=== PATIENT | female | born 1940 | race Caucasian/White ===

== ENCOUNTER 2024-01-16 09:34 | Emergency (ER) | payer MEDICARE, SELFPAY ==
[2024-01-16 09:38] VITALS: BP 137/85
--- NOTE | 2024-01-16 10:16 | ED.GENMED ---
History of Present Illness
<Heather Gomes PA-C - Last Filed: 01/17/24 17:42>
General
Chief Complaint: Skin Problem
Source: patient
Exam Limitations: none
Time Seen by Provider: 01/16/24 09:43
Nursing documentation reviewed up to this point in time: agreed with
History of Present Illness
History of Present Illness:
Patient is an 83-year-old female presenting to the emergency department via EMS from [facility] for evaluation of leg laceration. Patient states that laceration occurred last night when she was being transferred from her bed to the
wheelchair to get to the bathroom. They applied a pressure dressing but bleeding persisted throughout the night. She was sent to the emergency department for evaluation of laceration. No other injuries.
Patient denies any numbness/tingling in right lower leg. She does suffer from chronic cellulitis of right lower leg and swelling is chronic per patient's daughter.
Patient has not received a tetanus shot in the last 10 years.
Past History
<Heather Gomes PA-C - Last Filed: 01/17/24 17:42>
Past History
ED Past Medical History: CVA (with residual R sided weakness), GERD, Hypercholesterolemia, Psychiatric (depression) and Other (urinary incontinence, cataracts, arthritis, dvt, cellulitis)
ED Past Surgical History: Other (multiple D&Cs tubal ligation age 31 KRYSTLE age 45 L carotid surgery (99% block) 1995)
Social History
Tobacco: Former smoker
Alcohol: None
Drug: None
Personal: Single
Living: alone ([facility])
Employment: Retired
Family History
Family History: Other (Noncontributory)
Review of Systems
<Heather Gomes PA-C - Last Filed: 01/17/24 17:42>
Review of Systems
Allergies reviewed?: Yes
All Other Systems: ROS reviewed and negative except as documented in HPI and ROS
Phy Exam
<Heather Gomes PA-C - Last Filed: 01/17/24 17:42>
Physical Exam
Physical Exam:
Vitals: Patient's vital signs are stable
General: Patient is well appearing, no acute distress
Skin: Approximately 4 cm superficial laceration somewhat jagged to right anterior lower leg.
Head: Normocephalic, atraumatic
Eyes: Sclera nonicteric. EOMs intact. No nystagmus.
Throat: Protecting airway
Neck: Normal ROM, no cervical spine tenderness, no meningismus
Cardiac: Regular rate and rhythm, no murmurs.
Pulm: Normal respiratory effort, no wheezes, rales, rhonchi heard on exam.
Abdomen: No abdominal tenderness.
Extremities: 4 cm superficial laceration of right anterior lower leg with mild nonpulsatile bleeding. Mild surrounding erythema of right lower leg without any significant warmth, or red streaking. Pitting edema of right lower extremity (chronic).
Great distal pulses of right lower extremity. Sensation fully intact.
Neuro: AAOx3. Grossly intact.
Psychiatric: Normal affect.
Course
<Heather Gomes PA-C - Last Filed: 01/17/24 17:42>
Orders/Labs/Results
Orders:
Orders
01/16/24 10:15
Acetaminophen [Tylenol] 650 mg PO NOW STA
01/16/24 10:21
Tetanus/Diphth/Acelpertussis [Adacel] 0.5 ml IM .ONCE ONE
01/16/24 11:03
Cephalexin Monohydrate [Keflex] 250 mg PO NOW STA
Vital Signs
Initial and Last Documented VS:
Initial Vital Signs
Temp Pulse Resp BP Pulse Ox
97.5 F 76 18 137/85 95
01/16/24 09:38 01/16/24 09:38 01/16/24 09:38 01/16/24 09:38 01/16/24 09:38
Last Documented Vital Signs
Temp Pulse Resp BP Pulse Ox
97.5 F 76 18 137/85 95
01/16/24 09:38 01/16/24 09:38 01/16/24 09:38 01/16/24 09:38 01/16/24 09:38
<Butch Reynoso MD - Last Filed: 01/16/24 12:10>
Orders/Labs/Results
Orders:
Orders
01/16/24 10:15
Acetaminophen [Tylenol] 650 mg PO NOW STA
01/16/24 10:21
Tetanus/Diphth/Acelpertussis [Adacel] 0.5 ml IM .ONCE ONE
01/16/24 11:03
Cephalexin Monohydrate [Keflex] 250 mg PO NOW STA
Vital Signs
Initial and Last Documented VS:
Initial Vital Signs
Temp Pulse Resp BP Pulse Ox
97.5 F 76 18 137/85 95
01/16/24 09:38 01/16/24 09:38 01/16/24 09:38 01/16/24 09:38 01/16/24 09:38
Last Documented Vital Signs
Temp Pulse Resp BP Pulse Ox
97.5 F 76 18 137/85 95
01/16/24 09:38 01/16/24 09:38 01/16/24 09:38 01/16/24 09:38 01/16/24 09:38
Procedures
<Heather Gomes PA-C - Last Filed: 01/17/24 17:42>
Laceration Closure
Right Lower Anterior Leg:
Status of Wound: clean
Size of Wound in cm: 4
Description of Wound Edges: ragged
Preparation: cleaned with saline and cleaned with SurClens
Anesthesia: 1% Lidocaine with epi
Revision/Debridement: routine- no revision
Wound exploration: explored to base- no FB
Type of Closure: interrupted sutures
Skin Closure Material: 4-0 nylon
Number of sutures: 7
Additional information:
Well-approximated with 7 simple opted sutures. Steri-Strips placed in between sutures for better approximation.
<Heather Gomes PA-C - Last Filed: 01/17/24 17:42>
MDM/Problems Addressed
Differential Diagnosis Includes:
Not limited to: Laceration, contusion
MDM/Problems Addressed:
83-year-old female presenting for evaluation of right lower leg laceration obtained during transfer last night at senior living. Did not sustain any other injuries. No head strike. Unknown last tetanus shot. Vital signs stable. Exam as above.
There is approximately 4 cm somewhat superficial and jagged laceration on the right anterior lower leg. There is some mild surrounding erythema and edema but per patient and her daughter she suffers with chronic cellulitis of this leg. There is
great distal pulses in right lower extremity.
Wound was irrigated thoroughly. Laceration closed with 7 simple interrupted sutures and Steri-Strips. Skin is well-approximated and bleeding under well control. Dressing placed. Patient tolerated procedure well. Given mild surrounding erythema
and questionable worsening appearance of chronic cellulitis�will place patient on short course of Keflex to prevent acute infection. First dose given in emergency department today. Tetanus shot was updated. Wound care instructions and return
precautions discussed at length with patient and patient's daughter. Patient will follow-up with PCP. Patient will be transported back to [facility].
Chronic conditions affecting care:
Chronic cellulitis
Acute Exacerbation and/or Progression of Chronic Illness:
N/A
<Heather Gomes PA-C - Last Filed: 01/17/24 17:42>
*Pulse Oximetry
Patient hypoxic: no
*EKG
Interpreted by ED Provider?: NA
*Slot Ambassador Interpretation
Rate: Slot Ambassador- N/A
*Critical Care Note
Total Time (30-74mins, 75-104mins- exclusive of procedures): Not Applicable
ED Attending Note
<Heather Gomes PA-C - Last Filed: 01/17/24 17:42>
-
Portions of this chart may have been created with voice recognition software.� Occasional wrong word or��sound alike� substitutions may have occurred due to the inherent limitations of voice recognition software.
<Butch Reynoso MD - Last Filed: 01/16/24 12:10>
ED Attending Note
Patient seen and examined by attending physician: Yes
ED Attending Note:
Patient presents to ED from senior living secondary to persistent bleeding from right lower leg, which occurred last night when she was being transported from her wheelchair. Patient unsure of her last tetanus vaccination. Denies any other
injuries. Denies loss of sensation or weakness. Pt takes 81mg aspirin daily
Physical Exam
General: no apparent distress, not acutely ill. afebrile
Head: nc/at. eomi
Neck: supple. normal range of motion
Neuro: alert and oriented. no focal neurological deficits
Skin: an approx 4cm superficial laceration over right lower anterior leg, with minimal oozing of nonpulsatile bleeding.
Psychiatric: well kept. interactive and cooperative
Extremities: no edema.
Wound well-approximated with placement of 7 sutures. As there appears to be mild erythema of the affected right lower leg, which has been ongoing, patient will be started empirically with For short duration, with recommendation to follow-up with
PCP for reevaluation, upon returning to the senior living.
Discharge Plan
Departure
Patient Disposition: Longterm/SNF
Date of Disposition: 01/16/24
Time of Disposition: 11:04
Patient with high blood pressure during this ER visit?: No
Condition: Good
Covid-19: Not Applicable
Discharge Problem:
Laceration of right lower extremity
Instructions: Wound Care (DC), Cellulitis (Skin Infection), Adult (DC), Laceration Repair With Stitches ED
Prescriptions:
New
cephalexin 250 mg capsule
250 mg PO BID 5 Days Qty: 10 0RF
No Action
baclofen 10 MG tablet
10 mg PO BID
Premarin 0.3 MG tablet
0.15 mg PO HS
famotidine 20 MG tablet
20 mg PO BID
hydrochlorothiazide 25 MG tablet
25 mg PO DAILY
aspirin 81 MG tablet,delayed release (DR/EC)
81 mg PO DAILY Qty: 0 0RF
albuterol sulfate [ProAir HFA] 90 mcg/actuation Hfa Aerosol Inhaler
2 puff INHALATION R Q6HPRN PRN (Reason: SOB)
Stiolto Respimat 2.5-2.5 mcg/actuation Mist
2 puff INHALATION R DAILY
celecoxib [Celebrex] 200 mg Capsule
200 mg PO DAILY
fluoxetine 40 mg Capsule
40 mg PO DAILY
latanoprost 0.005 % Drops
1 drp BOTH EYES HS
polyethylene glycol 3350 [Miralax] 17 gram Powder In Packet
17 g PO DAILYPRN PRN (Reason: constipation)
acetaminophen [Tylenol Extra Strength] 500 mg Tablet
1,000 mg PO Q6H
magnesium hydroxide [Milk of Magnesia] 400 mg/5 mL Suspension
2,400 mg PO DAILYPRN PRN (Reason: if no bm by 4th day)
bisacodyl [Dulcolax (bisacodyl)] 10 mg Suppository
10 mg [place] DAILYPRN PRN (Reason: constipation)
Fleet Enema 19-7 gram/118 mL Enema
118 ml [place] DAILYPRN PRN (Reason: if no bm by 6th day)
clorazepate dipotassium 7.5 MG tablet
7.5 mg PO BID
atorvastatin 80 MG tablet
80 mg PO DAILY
cephalexin 500 mg capsule
500 mg PO QID 7 Days Qty: 28 0RF
tramadol 50 mg Tablet
50 mg PO Q6HPRN PRN (Reason: severe pain) Qty: 12 0RF
Referrals:
Francisco Javier Kennedy MD [Family Provider] - Follow up in 10 days
Activity Restrictions/Additional Instructions:
RETURN TO THE EMERGENCY DEPARTMENT WITH ANY FEVERS, CHILLS, INTRACTABLE PAIN, SIGNIFICANT REDNESS/SWELLING OF RIGHT LOWER LEG, RED STREAKING AWAY FROM WOUND, PUS DRAINING FROM WOUND, NUMBNESS/TINGLING IN RIGHT LOWER LEG OR ANY OTHER CONCERNS
-Sutures should be removed in about 10 days. This can be done at your senior living or with your primary care provider. You can return to the emergency department if needed. You should keep wound clean and dry. Wash gently with soap and water
daily. You should closely monitor for signs of infection and return to the emergency department if needed for further evaluation
-A prescription for antibiotic has been sent to your pharmacy. You should take this twice a day for the next 5 days prevent any infection.
-Follow-up with your primary care provider as needed for further evaluation/manage
Interventions
Interventions:
*Risk Screen - Suicide Last Done: 01/16/24 09:40
*General Assessment Last Done: 01/16/24 09:40
*Neglect/Abuse Screening Last Done: 01/16/24 09:40
*ED COVID-19 Vaccine History Last Done: 01/16/24 09:39
*Nursing Disposition Last Done: 01/16/24 12:14
ED-Skin Assessment Last Done: 01/16/24 10:15
Discharge Date and Time
Discharge Date/Time: 01/16/24 12:33
Print Language: ST LUCIAN
[2024-01-16] MEDS: ADACEL 0.5 ML IM (10:49)
[2024-01-16] MEDS: KEFLEX 250 MG PO (11:34)
== END 2024-01-16 12:33 ==
LOC: EMR 09:34
PROVIDERS: EMERGENCY PHYSICIAN Emergency Medicine; FAMILY PHYSICIAN Family Medicine
DX: S81.811A Laceration without foreign body, right lower leg, initial encounter (principal); W45.8XXA Other foreign body or object entering through skin, initial encounter; Y93.89 Activity, other specified; Y92.89 Other specified places as the place of occurrence of the external cause; R60.0 Localized edema; L03.115 Cellulitis of right lower limb; Z23 Encounter for immunization; I69.351 Hemiplegia and hemiparesis following cerebral infarction affecting right dominant side; K21.9 Gastro-esophageal reflux disease without esophagitis; E78.00 Pure hypercholesterolemia, unspecified; F32.A Depression, unspecified; I11.0 Hypertensive heart disease with heart failure; I50.9 Heart failure, unspecified; I25.10 Atherosclerotic heart disease of native coronary artery without angina pectoris; J44.9 Chronic obstructive pulmonary disease, unspecified; M19.90 Unspecified osteoarthritis, unspecified site; Z99.81 Dependence on supplemental oxygen; Z79.82 Long term (current) use of aspirin; Z87.891 Personal history of nicotine dependence; Z86.718 Personal history of other venous thrombosis and embolism; Z88.8 Allergy status to other drugs, medicaments and biological substances; Z91.041 Radiographic dye allergy status; Z91.040 Latex allergy status
CPT/HCPCS: 12032; 99283; 90471; 90715

== ENCOUNTER → 2024-02-15 11:47 | Outpatient (REF) | payer MEDICARE, SELFPAY ==
[2024-02-15 14:14] LABS: % Basophils 0.2 % (0-2); % Eosinophils 1.2 % (0-6); % Immature Granulocytes 0.3 % (0-0.5); % Lymphocytes 10.9 % (20.5-51.1); % Monocytes 6.9 % (1.7-9.3); % Neutrophils 80.5 % (42.2-75.2); Absolute Eosinophils 0.1 10^3/uL (0-0.7); Absolute Lymphocytes 1.2 10^3/uL (1.2-3.4); Absolute Monocytes 0.7 10^3/uL (0.1-0.6); Absolute Neutrophils 8.6 10^3/uL (1.4-6.5); Hematocrit 32.1 % (37.0-47.0); Hemoglobin 10.6 g/dL (12.0-16.0); Mean Corpuscular Hgb 33.3 pg (27.0-31.0); Mean Corpuscular Volume 100.9 fL (81.0-99.0); Mean Platelet Volume 11.6 fL (7.4-10.4); Nucleated Red Blood Cells % 0 %; Platelet Count 156 10^3/uL (130-400); Red Blood Cell Count 3.18 10^6/uL (4.20-5.40); Red Cell Dist. Width 12.4 % (11.5-14.5); White Blood Cell Count 10.6 10^3/uL (4.8-10.8)
[2024-02-15 14:23] LABS: Blood Urea Nitrogen 31 mg/dl (7-17); Calcium 8.9 mg/dl (8.4-10.2); Carbon Dioxide 30 mmol/L (22-30); Chloride 101 mmol/L (98-107); Glucose 94 mg/dl (70-99); Sodium 137 mmol/L (135-145); eGFR > 60.00
== END ==
LOC: OLABP 11:47
PROVIDERS: ATTENDING PHYSICIAN Family Medicine
DX: I69.320 Aphasia following cerebral infarction (principal); I69.322 Dysarthria following cerebral infarction; J96.01 Acute respiratory failure with hypoxia; I69.351 Hemiplegia and hemiparesis following cerebral infarction affecting right dominant side; H40.9 Unspecified glaucoma; U07.1 COVID-19; M62.59 Muscle wasting and atrophy, not elsewhere classified, multiple sites; R48.8 Other symbolic dysfunctions; M54.50 Low back pain, unspecified; I10 Essential (primary) hypertension; K21.9 Gastro-esophageal reflux disease without esophagitis; E04.1 Nontoxic single thyroid nodule; E27.9 Disorder of adrenal gland, unspecified; H61.121 Hematoma of pinna, right ear; J44.9 Chronic obstructive pulmonary disease, unspecified; E78.5 Hyperlipidemia, unspecified; M62.81 Muscle weakness (generalized); I63.9 Cerebral infarction, unspecified; R26.2 Difficulty in walking, not elsewhere classified; F32.9 Major depressive disorder, single episode, unspecified
CPT/HCPCS: 36415; 80048; 85025

== ENCOUNTER → 2024-02-28 11:20 | Outpatient (REF) | payer MEDICARE, SELFPAY ==
[2024-02-28 12:13] LABS: % Basophils 0.7 % (0-2); % Eosinophils 2.9 % (0-6); % Immature Granulocytes 0.1 % (0-0.5); % Lymphocytes 27.8 % (20.5-51.1); % Monocytes 9.6 % (1.7-9.3); % Neutrophils 58.9 % (42.2-75.2); Absolute Basophils 0.1 10^3/uL (0-0.2); Absolute Eosinophils 0.2 10^3/uL (0-0.7); Absolute Lymphocytes 1.9 10^3/uL (1.2-3.4); Absolute Monocytes 0.7 10^3/uL (0.1-0.6); Absolute Neutrophils 4.1 10^3/uL (1.4-6.5); Hematocrit 32.1 % (37.0-47.0); Hemoglobin 10.6 g/dL (12.0-16.0); Mean Corpuscular Hgb 32.4 pg (27.0-31.0); Mean Corpuscular Volume 98.2 fL (81.0-99.0); Mean Platelet Volume 10.8 fL (7.4-10.4); Nucleated Red Blood Cells % 0 %; Platelet Count 293 10^3/uL (130-400); Red Blood Cell Count 3.27 10^6/uL (4.20-5.40); Red Cell Dist. Width 12.2 % (11.5-14.5)
[2024-02-28 12:49] LABS: ALT (SGPT) 17 U/L (0-35); AST (SGOT) 30 U/L (14-36); Albumin 3.5 g/dl (3.5-5.0); Alkaline Phosphatase 77 U/L (38-126); Blood Urea Nitrogen 25 mg/dl (7-17); Calcium 9.2 mg/dl (8.4-10.2); Carbon Dioxide 32 mmol/L (22-30); Chloride 101 mmol/L (98-107); Glucose 92 mg/dl (70-99); Potassium 3.9 mmol/L (3.5-5.1); Sodium 140 mmol/L (135-145); Total Bilirubin 0.4 mg/dl (0.2-1.3); Total Protein 6.2 g/dl (6.3-8.2); eGFR > 60.00
== END ==
LOC: OLABP 11:20
PROVIDERS: ATTENDING PHYSICIAN Family Medicine
DX: L03.116 Cellulitis of left lower limb (principal); Z74.1 Need for assistance with personal care; J96.01 Acute respiratory failure with hypoxia; I69.351 Hemiplegia and hemiparesis following cerebral infarction affecting right dominant side; H40.9 Unspecified glaucoma; M54.50 Low back pain, unspecified; M62.59 Muscle wasting and atrophy, not elsewhere classified, multiple sites; W19.XXXA Unspecified fall, initial encounter; I63.9 Cerebral infarction, unspecified; M51.9 Unspecified thoracic, thoracolumbar and lumbosacral intervertebral disc disorder; I10 Essential (primary) hypertension; M62.81 Muscle weakness (generalized); K21.9 Gastro-esophageal reflux disease without esophagitis; R26.2 Difficulty in walking, not elsewhere classified; E04.1 Nontoxic single thyroid nodule; F32.9 Major depressive disorder, single episode, unspecified; E27.9 Disorder of adrenal gland, unspecified; H61.121 Hematoma of pinna, right ear; J44.9 Chronic obstructive pulmonary disease, unspecified; E78.5 Hyperlipidemia, unspecified; I69.320 Aphasia following cerebral infarction; R48.8 Other symbolic dysfunctions; U07.1 COVID-19
CPT/HCPCS: 36415; 80053; 85025; 86140

== ENCOUNTER → 2024-06-10 09:31 | Outpatient (REF) | payer OTHER, MEDICARE, SELFPAY ==
[2024-06-10 10:50] LABS: Hematocrit 35.3 % (37.0-47.0); Hemoglobin 11.2 g/dL (12.0-16.0); Mean Corp Hgb Conc. 31.7 g/dL (33.0-37.0); Mean Corpuscular Hgb 30.7 pg (27.0-31.0); Mean Corpuscular Volume 96.7 fL (81.0-99.0); Mean Platelet Volume 12.5 fL (7.4-10.4); Platelet Count 171 10^3/uL (130-400); Red Blood Cell Count 3.65 10^6/uL (4.20-5.40); Red Cell Dist. Width 12.8 % (11.5-14.5); White Blood Cell Count 16.6 10^3/uL (4.8-10.8)
[2024-06-10 11:11] LABS: Blood Urea Nitrogen 33 mg/dl (7-17); Carbon Dioxide 29 mmol/L (22-30); Chloride 100 mmol/L (98-107); Glucose 117 mg/dl (70-99); Potassium 3.6 mmol/L (3.5-5.1); Sodium 141 mmol/L (135-145)
== END ==
LOC: OLABP 09:31
PROVIDERS: ATTENDING PHYSICIAN Family Medicine
DX: J96.01 Acute respiratory failure with hypoxia (principal); I69.351 Hemiplegia and hemiparesis following cerebral infarction affecting right dominant side; H40.9 Unspecified glaucoma; S22.32XA Fracture of one rib, left side, initial encounter for closed fracture; M54.50 Low back pain, unspecified; W19.XXXA Unspecified fall, initial encounter; M51.9 Unspecified thoracic, thoracolumbar and lumbosacral intervertebral disc disorder; I10 Essential (primary) hypertension; K21.9 Gastro-esophageal reflux disease without esophagitis; E04.1 Nontoxic single thyroid nodule; E27.9 Disorder of adrenal gland, unspecified; H61.121 Hematoma of pinna, right ear; J44.9 Chronic obstructive pulmonary disease, unspecified; E78.5 Hyperlipidemia, unspecified; M62.81 Muscle weakness (generalized); I69.320 Aphasia following cerebral infarction; I69.30 Unspecified sequelae of cerebral infarction; U07.1 COVID-19; M62.59 Muscle wasting and atrophy, not elsewhere classified, multiple sites; R48.8 Other symbolic dysfunctions; I63.9 Cerebral infarction, unspecified; R26.2 Difficulty in walking, not elsewhere classified; F32.9 Major depressive disorder, single episode, unspecified
CPT/HCPCS: 36415; 80048; 85027

== ENCOUNTER 2024-06-12 14:02 | Inpatient (IN) | payer MEDICARE, SELFPAY ==
[2024-06-12] VITALS (11 sets, daily range): BP systolic 119–175; BP diastolic 54–78; BMI 21.9; BMI 22.8
--- NOTE | 2024-06-12 10:29 | ED.GENMED ---
History of Present Illness
General
Chief Complaint: Weakness
Source: patient and ambulance crew
Exam Limitations: none
Time Seen by Provider: 06/12/24 10:26
History of Present Illness
History of Present Illness:
See MDM
Past History
Past History
ED Past Medical History: CVA (with residual R sided weakness), GERD, Hypercholesterolemia, Psychiatric (depression) and Other (urinary incontinence, cataracts, arthritis, dvt, cellulitis)
ED Past Surgical History: Other (multiple D&Cs tubal ligation age 31 KRYSTLE age 45 L carotid surgery (99% block) 1995)
Social History
Tobacco: Former smoker
Alcohol: None
Drug: None
Personal: Single
Living: alone ([facility])
Employment: Retired
Family History
Family History: Other (Noncontributory)
Phy Exam
Physical Exam
Physical Exam:
See MDM
Course
Orders/Labs/Results
Orders:
Orders
06/12/24 10:26
Electrocardiogram (*1) Urgent
Reason for Study: Fatigue / Weakness
06/12/24 10:27
EKG- Treatment ONCE
06/12/24 10:29
CT Head W/o Iv Contrast Urgent
Comment:
Reason For Exam: fall
CR Chest Portable - 1 View Urgent
Comment:
Reason For Exam: Cough, SOB, hypoxia
Reason Study Needs to be Portable: Patient Unstable
06/12/24 10:50
Complete Blood Count/With Diff Urgent
Comprehensive Metabolic Panel Urgent
06/12/24 11:06
NT-proBNP Urgent
Troponin I Urgent
06/12/24 11:57
Furosemide [Lasix] 40 mg IV NOW STA
06/12/24 11:59
Aspirin 300 mg RECTAL NOW STA
06/12/24 12:00
VQ Scan [NM Lung Scan Vent/perf ] Urgent
Comment:
Reason For Exam: SOB
Abnormal Lab Results
06/12/24 06/12/24
10:50 11:06
WBC 14.9 H 10^3/uL
(4.8-10.8)
RBC 3.81 L 10^6/uL
(4.20-5.40)
Hgb 11.4 L g/dL
(12.0-16.0)
Hct 36.9 L %
(37.0-47.0)
MCHC 30.9 L g/dL
(33.0-37.0)
MPV 11.2 H fL
(7.4-10.4)
Abs Immat Gran (auto) 0.1 H 10^3/uL
(0-0.05)
Absolute Neuts (auto) 12.5 H 10^3/uL
(1.4-6.5)
Absolute Monos (auto) 1.2 H 10^3/uL
(0.1-0.6)
Neutrophils % 83.6 H %
(42.2-75.2)
Lymphocytes % 7.8 L %
(20.5-51.1)
Carbon Dioxide 34 H mmol/L
(22-30)
BUN 49 H mg/dl
(7-17)
Glucose 128 H mg/dl
(70-99)
AST 46 H U/L
(14-36)
Troponin I 0.063 H* ng/ml
06/12/24 10:50
06/12/24 10:50
Vital Signs
Initial and Last Documented VS:
Initial Vital Signs
BP
148/72
06/12/24 10:27
Last Documented Vital Signs
Temp Pulse Resp BP Pulse Ox
99.8 F 85 21 162/67 96
06/12/24 10:32 06/12/24 11:45 06/12/24 11:45 06/12/24 11:02 06/12/24 11:45
MDM/Problems Addressed
Differential Diagnosis Includes:
HPI and MDM Narrative:
83-year-old female presenting for generalized weakness and fatigue. EMS stating that she slid out of bed overnight and they helped her back in a bed. Since she was weaker than normal this morning, they called 911. On arrival, patient found to be
mildly hypoxic. No obvious trauma noted on exam. Patient placed on supplemental oxygen. She does acknowledge an ongoing cough. Will obtain chest x-ray. Given the fall, will obtain CT head. Screening EKG performed showing no change from prior.
Physical exam
General: Weak and frail
HEENT: protecting airway. Dry mucous membrane
Neck: supple
CV: No evidence of cyanosis. Regular rate and rhythm
Resp: No accessory muscle use. Rhonchorous breath sounds
Abd: Non-distended
Extremities: No deformities
Neuro: alert
Psych: Normal affect
Skin: Intact
Problems Addressed including Acute and Chronic Conditions affecting care:
1. Unwitnessed fall
Acuity: acute
Prognosis: stable
Details: Will obtain CT head. EKG nonischemic
2. Hypoxia
Acuity: acute
Prognosis: unstable
Details: Patient requiring supplemental oxygen. Will obtain chest x-ray
Updates
Chest x-ray read as atelectasis but there is concerned that it could be mild pulmonary edema. Troponin and BNP elevated. Patient given IV Lasix. She is unable to be weaned on room air. Will admit based on hypoxia and possible CHF. Will order VQ
scan given her IV contrast
Differential Diagnosis (but not limited to): Pneumonia, viral syndrome, CHF
Testing considered: Troponin and BNP
Drug therapy (if applicable): OTC meds, please see d/c instruction regarding Rx drugs
Amount and/or Complexity of Data Reviewed
Clinical info obtained from: Patient
External data reviewed: N/A
Labs I independently reviewed (but not limited to): Elevated BNP and troponin
Radiology: X-ray independently reviewed: Chest x-ray concerning for mild pulmonary edema
Pulse Ox: hypoxic
EKG independently reviewed: Sinus rhythm, right bundle branch block, no STEMI
Caramel Maker: Sinus rhythm
Critical Care: The high probability of a clinically significant, sudden or life threatening deterioration of the cardiovascular system(s) required my full and direct attention, intervention and personal management. The aggregate critical care time
was 33 minutes. This time is in addition to time spent performing reported procedures but includes the following:
[x] Data Review and interpretation
[x] Patient assessment and monitoring of vital signs
[x] Documentation
[x] Medication orders and management
Risk of Complication:
Social Determinants of health: Good social support
Discussed with other providers: Hospitalist
Escalation of Care includes Admit/Obs: Given the hypoxia and concern for pulmonary edema, will admit
Occasional wrong word or 'sound a like' substitutions may have occurred due to the inherent limitations of voice recognition software. Read the chart carefully and recognize, using context, where substitutions have occurred.
*Critical Care Note
Total Time (30-74mins, 75-104mins- exclusive of procedures): 33 min
ED Attending Note
-
Portions of this chart may have been created with voice recognition software.� Occasional wrong word or��sound alike� substitutions may have occurred due to the inherent limitations of voice recognition software.
Discharge Plan
Departure
Patient Disposition: Admit
Date of Disposition: 06/12/24
Time of Disposition: 12:22
Admit to: Med/Surg
Presentation/result/management discussed w/ accepting MD/DO: Hospitalist
Discharge Problem:
Hypoxia, Acute exacerbation of CHF (congestive heart failure)
Prescriptions:
No Action
baclofen 10 MG tablet
10 mg PO BID
Premarin 0.3 MG tablet
0.15 mg PO DAILY
famotidine 20 MG tablet
20 mg PO HS
aspirin 81 MG tablet,delayed release (DR/EC)
81 mg PO DAILY Qty: 0 0RF
Stiolto Respimat 2.5-2.5 mcg/actuation Mist
2 puff INHALATION R DAILY
celecoxib [Celebrex] 200 mg Capsule
200 mg PO DAILY
fluoxetine 40 mg Capsule
40 mg PO DAILY
latanoprost 0.005 % Drops
1 drp BOTH EYES HS
polyethylene glycol 3350 [Miralax] 17 gram Powder In Packet
17 g PO DAILYPRN PRN (Reason: constipation)
acetaminophen [Tylenol Extra Strength] 500 mg Tablet
1,000 mg PO TID
magnesium hydroxide [Milk of Magnesia] 400 mg/5 mL Suspension
2,400 mg PO DAILYPRN PRN (Reason: if no bm by 4th day)
bisacodyl [Dulcolax (bisacodyl)] 10 mg Suppository
10 mg [place] DAILYPRN PRN (Reason: constipation)
Fleet Enema 19-7 gram/118 mL Enema
118 ml [place] DAILYPRN PRN (Reason: CONSTIPATION)
clorazepate dipotassium 7.5 MG tablet
7.5 mg PO BID
atorvastatin 80 MG tablet
80 mg PO HS
dextromethorphan polistirex [Delsym 12 hour] 30 mg/5 mL Suspension,Extended Rel 12 Hr
5 ml PO Q6HPRN PRN (Reason: COUGH)
tramadol 50 mg Tablet
50 mg PO Q6HPRN PRN (Reason: pain )
hydrochlorothiazide 25 mg Tablet
25 mg PO DAILY
albuterol sulfate [ProAir HFA] 90 mcg/actuation Hfa Aerosol Inhaler
2 inh INHALATION R Q6HPRN PRN (Reason: SOB)
diclofenac sodium [Voltaren] 1 % Gel
2 g TOPICAL BID
Spiriva Respimat 1.25 mcg/actuation Mist
2 puff INHALATION R DAILY
tramadol 50 mg tablet
50 mg PO DAILY
Referrals:
Francisco Javier Kennedy MD [Family Provider] -
Interventions
Interventions:
*Risk Screen - Suicide Last Done: 06/12/24 10:32
*Neglect/Abuse Screening Last Done: 06/12/24 10:32
Discharge Date and Time
Print Language: ANGUILLAN
[2024-06-12 11:00] LABS: % Basophils 0.2 % (0-2); % Eosinophils 0.2 % (0-6); % Immature Granulocytes 0.5 % (0-0.5); % Lymphocytes 7.8 % (20.5-51.1); % Monocytes 7.7 % (1.7-9.3); % Neutrophils 83.6 % (42.2-75.2); Absolute Immature Granulocytes 0.1 10^3/uL (0-0.05); Absolute Lymphocytes 1.2 10^3/uL (1.2-3.4); Absolute Monocytes 1.2 10^3/uL (0.1-0.6); Absolute Neutrophils 12.5 10^3/uL (1.4-6.5); Hematocrit 36.9 % (37.0-47.0); Hemoglobin 11.4 g/dL (12.0-16.0); Mean Corp Hgb Conc. 30.9 g/dL (33.0-37.0); Mean Corpuscular Hgb 29.9 pg (27.0-31.0); Mean Corpuscular Volume 96.9 fL (81.0-99.0); Mean Platelet Volume 11.2 fL (7.4-10.4); Nucleated Red Blood Cells % 0 %; Platelet Count 196 10^3/uL (130-400); Red Blood Cell Count 3.81 10^6/uL (4.20-5.40); White Blood Cell Count 14.9 10^3/uL (4.8-10.8)
[2024-06-12 11:09] LABS: ALT (SGPT) 22 U/L (0-35); AST (SGOT) 46 U/L (14-36); Albumin 3.9 g/dl (3.5-5.0); Alkaline Phosphatase 118 U/L (38-126); Blood Urea Nitrogen 49 mg/dl (7-17); Calcium 9.1 mg/dl (8.4-10.2); Carbon Dioxide 34 mmol/L (22-30); Chloride 101 mmol/L (98-107); Estimated Creatinine Clearance 34 ml/min; Glucose 128 mg/dl (70-99); Potassium 3.6 mmol/L (3.5-5.1); Sodium 144 mmol/L (135-145); Total Bilirubin 0.4 mg/dl (0.2-1.3); Total Protein 7.1 g/dl (6.3-8.2)
[2024-06-12 11:55] LABS: NT-proBNP 6340 pg/ml; Troponin I 0.063 ng/ml
[2024-06-12] MEDS: ASPIRIN 300 MG RECTAL (12:14)
[2024-06-12] MEDS: LASIX 40 MG IV (12:14)
--- NOTE | 2024-06-12 12:43 | HPS.HSE ---
Addendum entered and electronically signed by JULISSA Jackson 06/12/24 16:46:
Speech swallow eval done by Isabell Alberto
-Recommends regular/thin diet with aspiration precautions
-Meds as tolerated
-[employer] SYSTEMS ENGINEER to follow
Original Note:
Family Physician
-
Family Physician: Francisco Javier Kennedy MD
Chief Complaint
-
Cough x 2 weeks, hypoxia
History of Present Illness
83-year-old female from [facility] with reported hypoxia, cough. Her nurse here in the ER Tereza tells me on arrival she was 77% on room air with 99.8F rectal temperature and was unable to answer any questions due to extreme lethargy. She
was given rectal aspirin in the ER and the nurse noted approximately 1 hour after she started to become more alert and answer questions. The patient is lethargic with an active wet cough at bedside. She tells me she has had a productive green
cough for the past 2 weeks. She states she is on chronic 2 L nasal cannula for her COPD. She denies headache, sore throat, body aches, fever, chills, chest pain, palpitations, shortness of breath, abdominal pain, nausea, vomiting, diarrhea,
urinary symptoms.
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
approximately 12 years ago was on prior Eliquis, COPD on 2 L nasal cannula, former smoker approximately 35 years stopped age 55, sleep apnea, GERD, chronic urinary incontinence, arthritis, depression post CVA
Medical History
Past Medical History
Past Medical History: Reports Other
Additional Past Medical History:
Past medical history
HTN
HLD
CVA age 55 with right-sided weakness
DVT
COPD
Former smoker
Sleep apnea
GERD
Chronic urinary incontinence
Arthritis
Depression post CVA
Past Surgical History: Reports Other
Additional Past Surgical History:
Multiple D&Cs
Tubal ligation age 31
KRYSTLE 45
Left CEA 1995
Cath with stent left carotid 11/21/2013
Cataract extraction bilateral 2013
Cholecystectomy complicated by post CHF
Social History
Tobacco: Former Smoker (35-year 1 pack a day quit age 55)
Alcohol: None
Drug: None
Personal:
Living: [facility])
Employment: Disabled
Family History
Family History: Not pertinent
Allergies / Home Medications
Allergies reflects when Allergies were last updated in [facility].
Home Medications with original date entered in [facility]
Allergy/Medication List:
Allergies
Allergy/AdvReac Type Severity Reaction Status Date / Time
cortisone [Cortisone] Allergy MASSIVE Verified 06/12/24 10:31
HEADACHE
Iodinated Contrast Media Allergy Unknown Verified 06/12/24 10:31
latex Allergy Rash Verified 06/12/24 10:31
prednisone Allergy CAUSED A Verified 06/12/24 10:31
STROKE
Home Medications
baclofen 10 mg tablet 10 mg PO BID Neurological Condition 05/19/12
conjugated estrogens 0.3 mg tablet (Premarin) 0.15 mg PO DAILY Hormonal agent 11/20/13
famotidine 20 mg tablet 20 mg PO HS Gastrointestinal issue 04/08/15
aspirin 81 mg tablet,delayed release 81 mg PO DAILY Blood clot prevention/tx ##0 10/10/20
tiotropium 2.5 mcg-olodaterol 2.5 mcg/actuation mist for inhalation (Stiolto Respimat) 2 puff inhalation R DAILY Lung/breathing issues 08/14/22
celecoxib 200 mg capsule (Celebrex) 200 mg PO DAILY Pain 03/05/23
fluoxetine 40 mg capsule 40 mg PO DAILY Mental Health/Anxiety 03/05/23
latanoprost 0.005 % eye drops 1 drp BOTH EYES HS Eye Condition 03/05/23
acetaminophen 500 mg tablet (Tylenol Extra Strength) 1,000 mg PO TID mild pain 06/15/23
atorvastatin 80 mg tablet 80 mg PO HS High Cholesterol 06/15/23
bisacodyl 10 mg rectal suppository (Dulcolax (bisacodyl)) 10 mg IL DAILYPRN PRN constipation 06/15/23
clorazepate dipotassium 7.5 mg tablet 7.5 mg PO BID Mental Health/Anxiety 06/15/23
magnesium hydroxide 400 mg/5 mL oral suspension (Milk of Magnesia) 2,400 mg PO DAILYPRN PRN if no bm by 4th day 06/15/23
polyethylene glycol 3350 17 gram oral powder packet (Miralax) 17 g PO DAILYPRN PRN constipation 06/15/23
sodium phosphates 19 gram-7 gram/118 mL enema (Fleet Enema) 118 ml IL DAILYPRN PRN CONSTIPATION 06/15/23
albuterol sulfate 90 mcg/actuation aerosol inhaler 2 inh inhalation R Q6HPRN PRN SOB 06/12/24
dextromethorphan polistirex 30 mg/5 mL oral susp ext.release 12hr (Delsym 12 hour) 5 ml PO Q6HPRN PRN COUGH 06/12/24
diclofenac sodium 1 % topical gel 2 g topical BID LEFT HAND 06/12/24
hydrochlorothiazide 25 mg tablet 25 mg PO DAILY Blood Pressure 06/12/24
tiotropium bromide 1.25 mcg/actuation mist for inhalation (Spiriva Respimat) 2 puff inhalation R DAILY Lung/Breathing Issues 06/12/24
tramadol 50 mg tablet 50 mg PO DAILY pain 06/12/24
tramadol 50 mg tablet 50 mg PO Q6HPRN PRN pain 06/12/24
Review of Systems
-
History Source: Patient and [facility] (record)
Constitutional: Denies Fever, Fatigue or Chills
EENT: Denies Sore Throat or Runny Nose
Respiratory: Reports Cough (Productive green in color); Denies Trouble Breathing
Cardiac: Denies Chest Pain, Diaphoresis, Palpitations or Syncope
Abdomen/GI: Denies Abdominal Pain, Nausea, Vomiting, Diarrhea, Constipated, Bloody Stools or Black Stools
: Denies Dysuria, Frequency, Flank Pain, Incontinence, Difficulty Voiding, Urgency or Bleeding
Musculoskeletal: Reports Edema (Right lower extremity with erythema circumferential just above knee and to the right lower extremity)
Skin: Denies Itching or Rash
Neurological: Reports Weakness (Generalized, chronic contracture to right hand, chronic right hemiplegia from prior CVA); Denies Dizzy or Headache
Endocrine: Reports No Symptoms
Hematologic/Lymphatic: Reports No Symptoms
Psych: Reports Calm
Physical Exam
Vital Signs
Vital Signs
Temp Pulse Resp BP Pulse Ox
99.8 F 91 21 158/65 96
06/12/24 10:32 06/12/24 12:14 06/12/24 11:45 06/12/24 12:14 06/12/24 11:45
Physical Exam
General: Comfortable and Conversant; No Pain, Fever or Chills
HEENT: NormoCephalic, Anicteric, Moist mucous membranes, PERRLA, [place] Conjunctivae and No Ptosis
Respiratory: Rhonchi (Throughout both lung george); No Wheezes or Rales
Cardiac: S1/S2, Regular Rhythm and Peripheral Edema; No JVD
Breast: Deferred by me
GI: Soft, Non Tender, Non Distended, Normal Bowel Sounds and No Hepatosplenomegaly
Rectal: Deferred by Provider
Genito-urinary: Deferred by me
Musculoskeletal: No Clubbing, No Cyanosis, Edema, Right Upper Extremity (Chronic contracture right hand) and Edema, Right Lower Extremity (Right lower extremity edema with circumferential erythema just above ankle but to the anterior distal lower
extremity); No Edema, Left Upper Extremity or Edema, Left Lower Extremity
Skin: Warm and Dry
Neuro: AO x 3 (Oriented to name, current president, future president, although did state it was 2041 versus 2023 is oriented to all of her past medical history), Nonfocal/grossly intact, Cranial Nerves Intact, No Sensory Deficits and Other
(Generalized, chronic contracture to right hand, chronic right hemiplegia from prior CVA); No Slurred Speech, Facial Droop or Tremors
Psych: Calm
Laboratory Results
-
06/12/24 10:50
06/12/24 10:50
Laboratory Results
Total Bilirubin 0.4 mg/dl (0.2-1.3) 06/12/24 10:50
AST 46 U/L (14-36) H 06/12/24 10:50
ALT 22 U/L (0-35) 06/12/24 10:50
Alkaline Phosphatase 118 U/L (38-126) 06/12/24 10:50
Troponin I 0.063 ng/ml H* 06/12/24 11:06
Data Reviewed
-
Diagnostic Radiology: Report Reviewed by me
Lab Data: Labs Reviewed by me
Impression/Plan
-
Impression/plan:
Admit to telemetry
#Acute hypoxic respiratory insuff 2/2 viral versus bacterial URI possible COPD flare
77% RA, 93% 2 LNC
WBC 14.9 <16.6 on 06/10/24, 99.8 F
-Check COVID, influenza
-Decadron 4 mg every 12 hours
-Azithromycin IV daily
-DuoNebs
-Check VQ scan
-PT/OT/case management consult
CXR: Minimal bibasilar opacity predominantly linear most suggestive of subsegmental atelectasis
#Right lower extremity cellulitis
Hx of right lower extremity DVT approximately 12 years ago per patient was on Eliquis at that time
-Check venous Doppler right lower extremity
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
# June 2023 nonhemorrhagic 3.5 cm infarct in the posterior lateral aspect of the left frontal just anterior to the sylvian fissure.
# Stable old 9 cm left middle cerebral artery infarct with overlying cortical sparing involving the left frontal and parietal lobes without temporal lobe involvement.
# Old 3 mm lacunar infarct in the head of the caudate on the left
#Moderate diffuse cortical and cerebellar atrophy with moderate nonspecific white matter changes as described above
-Continue aspirin 81 mg daily, atorvastatin 80 mg at bedtime, baclofen 10 mg twice daily, continue tramadol 50 mg daily and 50 mg every 6 hours as needed pain
-Hold current Celebrex 200 mg daily while trending troponin would resume if troponin trends down with no EKG changes
#Hx patent left ICA stent heavily calcified right carotid bulb and proximal ICA greater than 50% luminal narrowing on CT head neck
#Nonischemic myocardial injury likely secondary to hypoxia
Troponin 0.063 will trend
History of CHF postcholecystectomy per history�do not suspect current CHF
I/O, daily weights
BNP 6340
-Patient was given single dose 40 mg Lasix in ER we will hold further dosing
2D echo 06/15/2023: EF 55%, no wall abnormalities, mild LVH, mild TR, estimated pulm arterial pressure 50-55 mmHg
#Hx COPD is on chronic 2 liters Nc
#Former smoker
-Continue Stiolto Respimat , Spiriva albuterol inhaler
Hx multiple strokes
Hx left carotid stent 11/21/2013
-Continue aspirin 81 mg daily, atorvastatin 80 mg at bedtime
HTN�benign
BP 158/65
-Continue HCTZ 25 mg daily
#GERD
-Continue Pepcid 20 mg at bedtime
#Hx HLD
Check lipid profile
-Continue atorvastatin 80 mg at bedtime
#Hx depression
- cont fluoxetine 40 mg daily,
#Hx hormonal agent
Continue Premarin 0.15 mg daily
#Hx sleep apnea
DVT prophylaxis
Subcu Lovenox
Full code per patient with Tereza ER nurse at bedside
--- NOTE | 2024-06-12 13:32 | W.PN.UPDATE ---
Addendum entered and electronically signed by Marguerite Pham MD 06/12/24 16:06:
Patient on 2L oxygen baseline.
Original Note:
Update Note
Progress Note Update
This is an addendum to the H&P written by Cherry Lizarraga on 06/12/2024.� Patient seen and examined independently with YE[employer] SPACE SALESPERSON.
83-year-old female past medical history of COPD, carotid stenosis status post left ICA stent, hypertension, DVT, GERD, hyperlipidemia, depression, CVA, presenting with fall, weakness and hypoxemia.
Right lower extremity warm and tender. Bilateral Ronchi on lung exam.�
Chest x-ray shows minimal bibasilar opacity, predominantly linear more suggestive of subsegmental atelectasis, no evidence of lobar airspace consolidation pleural effusion or pneumothorax.
Cardiac BNP of 6300.� Troponin of 0.063.� EKG shows normal sinus rhythm, right bundle branch work which is old.� CT head shows no acute abnormality.
Patient given 40 IV Lasix.� Given aspirin 325 mg.� VQ scan ordered given contrast allergy.
Concern for acute hypoxemic respiratory insufficiency secondary to Viral induced�COPD exacerbation/possible aspiration pneumonitis/component of CHF exacerbation.� Check COVID and influenza.�Dexamethasone 4 mg every 12, DuoNebs every 6 hours.
Levaquin to cover PNA and right lower extremity cellulitis.�
Check venous ultrasound right lower extremity given asymmetric swelling.�
[2024-06-12] MEDS: DECADRON 4 MG IV (15:10)
[2024-06-12] MEDS: LEVAQUIN 100 IV (15:11)
[2024-06-12 15:36] LABS: COVID-19 Antigen Negative (Negative)
--- NOTE | 2024-06-12 16:19 | PTOTSP ---
Speech Language Pathology
Patient seen for clinical bedside swallow evaluation. Patient awake/alert and seated upright with cough observed prior to PO trials. P.O. trials of thins via ice chip/cup/straw, puree, and regular solids provided. Functional mastication and bolus
formation observed with minimal oral residue after regular solid that cleared with liquid wash. Cough observed x1 with straw sip of thins with no overt signs of aspiration across trials of thins via cup or solids.
Recommend:
1) Regular solids/thin liquids
2) Aspiration precautions: Avoid straws, sit upright, slow rate, ensure oral cavity clear post P.O. intake.
3) Meds as tolerated.
4) RN and MD notified of results/recommendations. HARDBOARD PRESS OPERATOR to continue to follow.
[2024-06-12] MEDS: TYLENOL 1000 MG PO ×2 (18:14→21:01)
[2024-06-12] MEDS: LOVENOX 40 MG SC (18:15)
[2024-06-12] MEDS: PEPCID 20 MG PO (21:02)
[2024-06-12] MEDS: LIPITOR 80 MG PO (21:02)
[2024-06-12] MEDS: LIORESAL 10 MG PO (21:02)
[2024-06-12] MEDS: TRANXENE 7.5 MG PO (21:03)
[2024-06-12] MEDS: DICLOFENAC 1% TOPICAL GEL 2 GRAM TOPICAL (21:04)
[2024-06-12] MEDS: XALATAN OPHTHALMIC SOLUTION 1 DROP BOTH EYES (21:04)
[2024-06-12] MEDS: DUONEB 3 ML INH (23:24)
[2024-06-13] VITALS (9 sets, daily range): BP systolic 124–197; BP diastolic 57–109; PULSE 91–92; O2SAT 94–96; BMI 22.9
[2024-06-13] MEDS: DECADRON 4 MG IV ×2 (01:34→13:55)
[2024-06-13 06:34] LABS: % Immature Granulocytes 0.4 % (0-0.5); % Lymphocytes 4.9 % (20.5-51.1); % Monocytes 2.9 % (1.7-9.3); % Neutrophils 91.8 % (42.2-75.2); Absolute Lymphocytes 0.5 10^3/uL (1.2-3.4); Absolute Monocytes 0.3 10^3/uL (0.1-0.6); Absolute Neutrophils 9.2 10^3/uL (1.4-6.5); Hematocrit 36.1 % (37.0-47.0); Hemoglobin 11.5 g/dL (12.0-16.0); Mean Corp Hgb Conc. 31.9 g/dL (33.0-37.0); Mean Corpuscular Hgb 30.2 pg (27.0-31.0); Mean Corpuscular Volume 94.8 fL (81.0-99.0); Mean Platelet Volume 11.5 fL (7.4-10.4); Nucleated Red Blood Cells % 0.2 %; Platelet Count 210 10^3/uL (130-400); Red Blood Cell Count 3.81 10^6/uL (4.20-5.40); Red Cell Dist. Width 12.9 % (11.5-14.5)
[2024-06-13 07:01] LABS: ALT (SGPT) 24 U/L (0-35); AST (SGOT) 47 U/L (14-36); Albumin 3.9 g/dl (3.5-5.0); Alkaline Phosphatase 120 U/L (38-126); Blood Urea Nitrogen 49 mg/dl (7-17); Calcium 8.9 mg/dl (8.4-10.2); Carbon Dioxide 34 mmol/L (22-30); Chloride 97 mmol/L (98-107); Estimated Creatinine Clearance 31 ml/min; Glucose 193 mg/dl (70-99); HDL Cholesterol 46 mg/dl; LDL Cholesterol, Calculated 71 mg/dl; Potassium 3.1 mmol/L (3.5-5.1); Sodium 144 mmol/L (135-145); Total Bilirubin 0.2 mg/dl (0.2-1.3); Total Cholesterol 137 mg/dl (50-199); Total Protein 7.2 g/dl (6.3-8.2); Triglyceride 104 mg/dl (10-149); Very Low Density Lipoprotein 20 mg/dl (0-30); eGFR 49.86
[2024-06-13] MEDS: SPIRIVA RESPIMAT 2.5 MCG 2 PUFF INH (08:26)
[2024-06-13] MEDS: STRIVERDI RESPIMAT 2 PUFF INH (08:26)
[2024-06-13] MEDS: PROZAC 40 MG PO (08:31)
[2024-06-13] MEDS: TYLENOL 1000 MG PO ×3 (08:31→21:15)
[2024-06-13] MEDS: TRANXENE 7.5 MG PO ×2 (08:31→21:17)
[2024-06-13] MEDS: DICLOFENAC 1% TOPICAL GEL 2 GRAM TOPICAL ×2 (08:32→21:18)
[2024-06-13] MEDS: ULTRAM 50 MG PO (08:32)
[2024-06-13] MEDS: ASPIR LOW (ENTERIC COATED) 81 MG PO (08:32)
[2024-06-13] MEDS: LIORESAL 10 MG PO ×2 (08:32→21:16)
[2024-06-13] MEDS: PREMARIN 0.15 MG PO (10:30)
[2024-06-13] MEDS: LEVAQUIN 50 IV (13:55)
[2024-06-13] MEDS: FLUSH (NSS) 4 FLUSH IV (13:55)
--- NOTE | 2024-06-13 16:20 | CM ---
Alert forgetful patient who lives meterman at [facility].She is assisted in all activities of daily living.She is on oxygen uses a walker and a cane.Spoke with Gisella she has a bed hold for [facility] care at [facility].Spoke with Miki Jorge also.Dgt
agrees with return to [facility] when medically ready.
[facility] skilled in past
Pharmacy Health Dirct
PCP Dr Jeter
PLAN Return to terminal makeup operator care [facility]
[2024-06-13] MEDS: LOVENOX 40 MG SC (16:38)
--- NOTE | 2024-06-13 17:13 | W.PN.HOSP.TC ---
Today's Communication/Plan
-
Repeat CXR
Wean oxygen down to baseline 2 L/M
change steroids to oral
Assessment / Plan
Assessment / Plan
#Acute hypoxic respiratory insuff 2/2 viral versus bacterial URI possible COPD flare
77% RA, 93% 2 LNC
WBC 14.9 <16.6 on 06/10/24, 99.8 F
-Neg COVID, influenza Negative
-Decadron 4 mg every 12 hours
-Azithromycin IV daily
-DuoNebs
low probability VQ scan
-PT/OT/case management consult
CXR: Minimal bibasilar opacity predominantly linear most suggestive of subsegmental atelectasis
#Right lower extremity cellulitis
Hx of right lower extremity DVT approximately 12 years ago per patient was on Eliquis at that time
-Negative venous Doppler right lower extremity
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
# June 2023 nonhemorrhagic 3.5 cm infarct in the posterior lateral aspect of the left frontal just anterior to the sylvian fissure.
# Stable old 9 cm left middle cerebral artery infarct with overlying cortical sparing involving the left frontal and parietal lobes without temporal lobe involvement.
# Old 3 mm lacunar infarct in the head of the caudate on the left
#Moderate diffuse cortical and cerebellar atrophy with moderate nonspecific white matter changes as described above
-Continue aspirin 81 mg daily, atorvastatin 80 mg at bedtime, baclofen 10 mg twice daily, continue tramadol 50 mg daily and 50 mg every 6 hours as needed pain
-Hold current Celebrex 200 mg daily while trending troponin would resume if troponin trends down with no EKG changes
#Hx patent left ICA stent heavily calcified right carotid bulb and proximal ICA greater than 50% luminal narrowing on CT head neck
#Nonischemic myocardial injury likely secondary to hypoxia
Troponin 0.063 will trend
History of CHF postcholecystectomy per history�do not suspect current CHF
I/O, daily weights
BNP 6340
-Patient was given single dose 40 mg Lasix in ER we will hold further dosing
2D echo 06/15/2023: EF 55%, no wall abnormalities, mild LVH, mild TR, estimated pulm arterial pressure 50-55 mmHg
#Hx COPD is on chronic 2 liters Nc
#Former smoker
-Continue Stiolto Respimat , Spiriva albuterol inhaler
SaO2 on 06/13 94% on 4 L/M
Hx multiple strokes
Hx left carotid stent 11/21/2013
-Continue aspirin 81 mg daily, atorvastatin 80 mg at bedtime
HTN�benign
BP 158/65
-Continue HCTZ 25 mg daily
#GERD
-Continue Pepcid 20 mg at bedtime
#Hx HLD
Check lipid profile
-Continue atorvastatin 80 mg at bedtime
#Hx depression
- cont fluoxetine 40 mg daily,
#Hx hormonal agent
Continue Premarin 0.15 mg daily
#Hx sleep apnea
DVT prophylaxis
Subcu Lovenox
Full code per patient with Tereza ER nurse at bedside
Anticipated Discharge: > 48 hours
Subjective/Interval History
-
Date of Service: June 13, 2024
Still with a lot of coughing
Objective Data
-
Labs:
Laboratory Results
06/13/24
05:32
WBC 10.0
Hgb 11.5 L
Hct 36.1 L
Plt Count 210
Sodium 144
Potassium 3.1 L
Chloride 97 L
Carbon Dioxide 34 H
BUN 49 H
Creatinine 1.1 H
Glucose 193 H
Calcium 8.9
Total Bilirubin 0.2
AST 47 H
ALT 24
Alkaline Phosphatase 120
Vital Signs:
Vital Signs
Temp Pulse Resp BP Pulse Ox
97.4 F 100 16 152/65 94
06/13/24 15:15 06/13/24 15:15 06/13/24 15:15 06/13/24 15:15 06/13/24 15:15
I&O
06/12/24 06/13/24 06/14/24
06:59 06:59 06:59
Output Total 900 / 900
Balance -900 / -900
Review of Systems
-
Unable to obtain full review of systems at this time due to: Dementia
History Source: Coordinated Provider
Constitutional: Denies Fever
EENT: Reports No Symptoms Reported
Respiratory: Reports Cough
Cardiac: Denies Chest Pain
Neuro: Reports Other (chronic Rt hemiplegia)
Physical Exam
-
General: Well Developed and Appears Chronically Ill
HEENT: Normocephalic and Atraumatic
Respiratory: Rhonchi
Cardiac: Regular Rhythm and S1/S2
GI: Soft, Nontender and Nondistended
Musculoskeletal: No Clubbing, No Cyanosis, No Edema and Other (muscle atrophy)
Neuro: Awake and Alert; Negative Oriented
Psych: Confused
[2024-06-13] MEDS: KCL 20 MEQ PO ×2 (17:49→21:17)
[2024-06-13] MEDS: LIPITOR 80 MG PO (21:15)
[2024-06-13] MEDS: PEPCID 20 MG PO (21:17)
[2024-06-13] MEDS: XALATAN OPHTHALMIC SOLUTION 1 DROP BOTH EYES (21:18)
[2024-06-14] VITALS (7 sets, daily range): BP systolic 116–170; BP diastolic 49–78; BMI 22.6
[2024-06-14 05:48] LABS: % Basophils 0.1 % (0-2); % Immature Granulocytes 0.5 % (0-0.5); % Monocytes 6.9 % (1.7-9.3); % Neutrophils 85.5 % (42.2-75.2); Absolute Immature Granulocytes 0.1 10^3/uL (0-0.05); Absolute Lymphocytes 1.1 10^3/uL (1.2-3.4); Absolute Monocytes 1.1 10^3/uL (0.1-0.6); Absolute Neutrophils 13.1 10^3/uL (1.4-6.5); Hematocrit 34.9 % (37.0-47.0); Hemoglobin 11.1 g/dL (12.0-16.0); Mean Corp Hgb Conc. 31.8 g/dL (33.0-37.0); Mean Corpuscular Hgb 30.1 pg (27.0-31.0); Mean Corpuscular Volume 94.6 fL (81.0-99.0); Mean Platelet Volume 10.8 fL (7.4-10.4); Nucleated Red Blood Cells % 0 %; Platelet Count 228 10^3/uL (130-400); Red Blood Cell Count 3.69 10^6/uL (4.20-5.40); Red Cell Dist. Width 12.8 % (11.5-14.5); White Blood Cell Count 15.3 10^3/uL (4.8-10.8)
[2024-06-14 06:10] LABS: ALT (SGPT) 26 U/L (0-35); AST (SGOT) 47 U/L (14-36); Albumin 3.8 g/dl (3.5-5.0); Alkaline Phosphatase 110 U/L (38-126); Blood Urea Nitrogen 52 mg/dl (7-17); Carbon Dioxide 32 mmol/L (22-30); Chloride 98 mmol/L (98-107); Estimated Creatinine Clearance 34 ml/min; Glucose 144 mg/dl (70-99); Potassium 3.7 mmol/L (3.5-5.1); Sodium 143 mmol/L (135-145); Total Bilirubin 0.2 mg/dl (0.2-1.3); Total Protein 7.1 g/dl (6.3-8.2)
--- NOTE | 2024-06-14 06:38 | PTCARENOTE ---
Heart monitor alarming for HR > 150. On assessment, patient sitting in bed, no complaints. Patient stated she was coughing during the tele monitor alarm. Tele monitor now reading NSR and HR in the 80s. Plan of care ongoing.
[2024-06-14] MEDS: STRIVERDI RESPIMAT 2 PUFF INH (07:43)
[2024-06-14] MEDS: SPIRIVA RESPIMAT 2.5 MCG 2 PUFF INH (07:43)
[2024-06-14] MEDS: PROZAC 40 MG PO (09:02)
[2024-06-14] MEDS: PREMARIN 0.15 MG PO (09:02)
[2024-06-14] MEDS: ASPIR LOW (ENTERIC COATED) 81 MG PO (09:03)
[2024-06-14] MEDS: TYLENOL 1000 MG PO ×3 (09:03→21:07)
[2024-06-14] MEDS: LIORESAL 10 MG PO ×2 (09:03→21:07)
[2024-06-14] MEDS: ULTRAM 50 MG PO (09:03)
[2024-06-14] MEDS: TRANXENE 7.5 MG PO ×2 (09:03→21:07)
[2024-06-14] MEDS: DELTASONE 40 MG PO (09:03)
[2024-06-14] MEDS: DICLOFENAC 1% TOPICAL GEL 2 GRAM TOPICAL ×2 (09:04→21:05)
[2024-06-14] MEDS: KCL 20 MEQ PO ×2 (09:05→21:06)
[2024-06-14] MEDS: LEVAQUIN 50 IV (14:14)
--- NOTE | 2024-06-14 15:37 | W.PN.HOSP.TC ---
Today's Communication/Plan
-
decrease steroids to oral
plan Echo
Assessment / Plan
Assessment / Plan
#Acute hypoxic respiratory insuff 2/2 viral versus bacterial URI possible COPD flare
77% RA, currently 92% on 5 L/M
WBC 06/10 16.6-->06/12 14.9--. 06/13 10.0-->15.3
-Neg COVID, influenza Negative
-Decadron 4 mg every 12 hours
pt does not have a wheeze, will decrease steroids
-Azithromycin IV daily
-DuoNebs
low probability VQ scan
-PT/OT/case management consult
unclear why hypoxic at this point, consider Pulm consult vs Cardio.
BUN/Creat 49/1.0-->49/1.1-->52/1.0
06/12 CXR: Minimal bibasilar opacity predominantly linear most suggestive of subsegmental atelectasis
06/13 CXR: Pulmonary vascularity most likely within the limits of normal, unchanged.
Minor bibasilar opacity suggesting subsegmental atelectasis without significant change.
#Right lower extremity cellulitis
Hx of right lower extremity DVT approximately 12 years ago per patient was on Eliquis at that time
-Negative venous Doppler right lower extremity
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
# June 2023 nonhemorrhagic 3.5 cm infarct in the posterior lateral aspect of the left frontal just anterior to the sylvian fissure.
# Stable old 9 cm left middle cerebral artery infarct with overlying cortical sparing involving the left frontal and parietal lobes without temporal lobe involvement.
# Old 3 mm lacunar infarct in the head of the caudate on the left
#Moderate diffuse cortical and cerebellar atrophy with moderate nonspecific white matter changes as described above
-Continue aspirin 81 mg daily, atorvastatin 80 mg at bedtime, baclofen 10 mg twice daily, continue tramadol 50 mg daily and 50 mg every 6 hours as needed pain
-Hold current Celebrex 200 mg daily while trending troponin would resume if troponin trends down with no EKG changes
#Hx patent left ICA stent heavily calcified right carotid bulb and proximal ICA greater than 50% luminal narrowing on CT head neck
#Nonischemic myocardial injury likely secondary to hypoxia
Troponin 0.063-->0.050-->0.050
History of CHF postcholecystectomy per history�do not suspect current CHF
I/O, daily weights
BNP 6340
-Patient was given single dose 40 mg Lasix in ER we will hold further dosing
2D echo 06/15/2023: EF 55%, no wall abnormalities, mild LVH, mild TR, estimated pulm arterial pressure 50-55 mmHg
#Hx COPD is on chronic 2 liters Nc
#Former smoker
-Continue Stiolto Respimat , Spiriva albuterol inhaler
SaO2 on 06/13 94% on 4 L/M
Hx multiple strokes
Hx left carotid stent 11/21/2013
-Continue aspirin 81 mg daily, atorvastatin 80 mg at bedtime
HTN�benign
BP 158/65
-Continue HCTZ 25 mg daily
#GERD
-Continue Pepcid 20 mg at bedtime
Hypokalemia
3.1-->3.7 resolved
#Hx HLD
Check lipid profile
-Continue atorvastatin 80 mg at bedtime
#Hx depression
- cont fluoxetine 40 mg daily,
#Hx hormonal agent
Continue Premarin 0.15 mg daily
#Hx sleep apnea
DVT prophylaxis
Subcu Lovenox
Full code per patient with Tereza ER nurse at bedside
Anticipated Discharge: > 48 hours
Subjective/Interval History
-
Date of Service: June 14, 2024
Telling me she wants to go home
Objective Data
-
Labs:
Laboratory Results
06/14/24
05:06
WBC 15.3 H
Hgb 11.1 L
Hct 34.9 L
Plt Count 228
Sodium 143
Potassium 3.7
Chloride 98
Carbon Dioxide 32 H
BUN 52 H
Creatinine 1.0
Glucose 144 H
Calcium 9.0
Total Bilirubin 0.2
AST 47 H
ALT 26
Alkaline Phosphatase 110
Vital Signs:
Vital Signs
Temp Pulse Resp BP Pulse Ox
97.3 F 87 18 116/49 92
06/14/24 11:30 06/14/24 11:30 06/14/24 11:30 06/14/24 11:30 06/14/24 15:02
I&O
06/13/24 06/14/24 06/15/24
06:59 06:59 06:59
Intake Total 1260 / 1260
Output Total 900 / 900
Balance -900 / -900 1260 / 1260
Review of Systems
-
Unable to obtain full review of systems at this time due to: Dementia
History Source: Coordinated Provider
Constitutional: Denies Fever
EENT: Reports No Symptoms Reported
Respiratory: Reports Cough
Cardiac: Denies Chest Pain
Neuro: Reports Other (chronic Rt hemiplegia)
Physical Exam
-
General: Well Developed and Appears Chronically Ill
HEENT: Normocephalic and Atraumatic
Respiratory: Rhonchi (have decreased)
Cardiac: Regular Rhythm and S1/S2
GI: Soft, Nontender and Nondistended
Musculoskeletal: No Clubbing, No Cyanosis, No Edema and Other (muscle atrophy)
Neuro: Awake and Alert; Negative Oriented
Psych: Confused
[2024-06-14] MEDS: LOVENOX 40 MG SC (17:25)
[2024-06-14] MEDS: XALATAN OPHTHALMIC SOLUTION 1 DROP BOTH EYES (21:05)
[2024-06-14] MEDS: LIPITOR 80 MG PO (21:06)
[2024-06-14] MEDS: PEPCID 20 MG PO (21:08)
[2024-06-15 03:21] VITALS: BP 157/70
--- NOTE | 2024-06-15 03:51 | PTCARENOTE ---
assumed care of patient. trial mgr reading NSR with BBB. SaO2 94% on 5L oxygen, humidification maintained. pt's call gonzalez within reach
[2024-06-15 06:00] VITALS: BMI 22.4
[2024-06-15 06:30] LABS: % Basophils 0.1 % (0-2); % Eosinophils 0.1 % (0-6); % Immature Granulocytes 0.9 % (0-0.5); % Lymphocytes 12.7 % (20.5-51.1); % Monocytes 7.5 % (1.7-9.3); % Neutrophils 78.7 % (42.2-75.2); Absolute Immature Granulocytes 0.1 10^3/uL (0-0.05); Absolute Lymphocytes 2.1 10^3/uL (1.2-3.4); Absolute Monocytes 1.2 10^3/uL (0.1-0.6); Absolute Neutrophils 12.9 10^3/uL (1.4-6.5); Hematocrit 32.5 % (37.0-47.0); Hemoglobin 10.6 g/dL (12.0-16.0); Mean Corp Hgb Conc. 32.6 g/dL (33.0-37.0); Mean Corpuscular Volume 92.1 fL (81.0-99.0); Mean Platelet Volume 11.3 fL (7.4-10.4); Nucleated Red Blood Cells % 0 %; Platelet Count 223 10^3/uL (130-400); Red Blood Cell Count 3.53 10^6/uL (4.20-5.40); Red Cell Dist. Width 12.6 % (11.5-14.5); White Blood Cell Count 16.3 10^3/uL (4.8-10.8)
[2024-06-15 06:49] LABS: ALT (SGPT) 26 U/L (0-35); AST (SGOT) 45 U/L (14-36); Albumin 3.5 g/dl (3.5-5.0); Alkaline Phosphatase 88 U/L (38-126); Blood Urea Nitrogen 41 mg/dl (7-17); Calcium 8.9 mg/dl (8.4-10.2); Carbon Dioxide 31 mmol/L (22-30); Chloride 101 mmol/L (98-107); Estimated Creatinine Clearance 42 ml/min; Glucose 110 mg/dl (70-99); Potassium 3.7 mmol/L (3.5-5.1); Sodium 140 mmol/L (135-145); Total Bilirubin 0.3 mg/dl (0.2-1.3); Total Protein 6.6 g/dl (6.3-8.2); eGFR > 60.00
[2024-06-15 07:52] VITALS: BP 166/73
[2024-06-15] MEDS: SPIRIVA RESPIMAT 2.5 MCG 2 PUFF INH (07:58)
[2024-06-15] MEDS: STRIVERDI RESPIMAT 2 PUFF INH (07:59)
[2024-06-15 11:14] VITALS: BP 135/59
[2024-06-15] MEDS: PROZAC 40 MG PO (11:16)
[2024-06-15] MEDS: ASPIR LOW (ENTERIC COATED) 81 MG PO (11:16)
[2024-06-15] MEDS: TYLENOL 1000 MG PO ×2 (11:16→18:23)
[2024-06-15] MEDS: LIORESAL 10 MG PO ×2 (11:16→21:04)
[2024-06-15] MEDS: DELTASONE 40 MG PO (11:17)
[2024-06-15] MEDS: PREMARIN 0.15 MG PO (11:17)
[2024-06-15] MEDS: KCL 20 MEQ PO ×2 (11:17→21:04)
[2024-06-15] MEDS: DICLOFENAC 1% TOPICAL GEL 2 GRAM TOPICAL ×2 (11:19→21:01)
[2024-06-15] MEDS: ULTRAM 50 MG PO (11:22)
[2024-06-15] MEDS: TRANXENE 7.5 MG PO ×2 (11:25→21:04)
[2024-06-15] MEDS: LEVAQUIN 50 IV (15:14)
[2024-06-15 15:27] VITALS: BP 125/58
--- NOTE | 2024-06-15 17:10 | W.PN.HOSP.TC ---
Addendum entered and electronically signed by Clint Pierce MD 06/15/24 18:51:
Rt LE cellulitis appears to have resolved
Original Note:
Today's Communication/Plan
-
continue current Rx, if continues to do well dc back to [facility] next 1-2 days, cautious tapering of steroids
Assessment / Plan
Assessment / Plan
#Acute hypoxic respiratory insuff 2/2 viral versus bacterial URI possible COPD flare
77% RA, currently 96% on 4 L/M (was on 4 L/M at [facility])
WBC 06/10 16.6-->06/12 14.9--. 06/13 10.0-->15.3-->16.3
elevated WBC most likely due to steroids (currently on Prednisone 40 mg daily)
-Neg COVID, influenza Negative
-Decadron 4 mg every 12 hours
pt does not have a wheeze, will decrease steroids
-Azithromycin IV daily
-DuoNebs
low probability VQ scan
-PT/OT/case management consult
unclear why hypoxic at this point, consider Pulm consult vs Cardio.
BUN/Creat 49/1.0-->49/1.1-->52/1.0-->41/0.8
06/12 CXR: Minimal bibasilar opacity predominantly linear most suggestive of subsegmental atelectasis
06/13 CXR: Pulmonary vascularity most likely within the limits of normal, unchanged.
Minor bibasilar opacity suggesting subsegmental atelectasis without significant change.
#Right lower extremity cellulitis
Hx of right lower extremity DVT approximately 12 years ago per patient was on Eliquis at that time
-Negative venous Doppler right lower extremity
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
# June 2023 nonhemorrhagic 3.5 cm infarct in the posterior lateral aspect of the left frontal just anterior to the sylvian fissure.
# Stable old 9 cm left middle cerebral artery infarct with overlying cortical sparing involving the left frontal and parietal lobes without temporal lobe involvement.
# Old 3 mm lacunar infarct in the head of the caudate on the left
#Moderate diffuse cortical and cerebellar atrophy with moderate nonspecific white matter changes as described above
-Continue aspirin 81 mg daily, atorvastatin 80 mg at bedtime, baclofen 10 mg twice daily, continue tramadol 50 mg daily and 50 mg every 6 hours as needed pain
-Hold current Celebrex 200 mg daily while trending troponin would resume if troponin trends down with no EKG changes
#Hx patent left ICA stent heavily calcified right carotid bulb and proximal ICA greater than 50% luminal narrowing on CT head neck
#Nonischemic myocardial injury likely secondary to hypoxia
Troponin 0.063-->0.050-->0.050
History of CHF postcholecystectomy per history�do not suspect current CHF
I/O, daily weights
BNP 6340
-Patient was given single dose 40 mg Lasix in ER we will hold further dosing
2D echo 06/15/2023: EF 55%, no wall abnormalities, mild LVH, mild TR, estimated pulm arterial pressure 50-55 mmHg
#Hx COPD is on chronic 2 liters N[place]
#Former smoker
-Continue Stiolto Respimat , Spiriva albuterol inhaler
SaO2 on 06/13 94% on 4 L/M
Hx multiple strokes
Hx left carotid stent 11/21/2013
-Continue aspirin 81 mg daily, atorvastatin 80 mg at bedtime
HTN�benign
BP 158/65
-Continue HCTZ 25 mg daily
#GERD
-Continue Pepcid 20 mg at bedtime
Hypokalemia
3.1-->3.7 resolved
#Hx HLD
Check lipid profile
-Continue atorvastatin 80 mg at bedtime
#Hx depression
- cont fluoxetine 40 mg daily,
#Hx hormonal agent
Continue Premarin 0.15 mg daily
#Hx sleep apnea
DVT prophylaxis
Subcu Lovenox
Full code per patient with [facility] nurse at bedside
Anticipated Discharge: 24 - 48 hours
Subjective/Interval History
-
Date of Service: June 15, 2024
Denies respiratory distress
Objective Data
-
Labs:
Laboratory Results
06/15/24
05:57
WBC 16.3 H
Hgb 10.6 L
Hct 32.5 L
Plt Count 223
Sodium 140
Potassium 3.7
Chloride 101
Carbon Dioxide 31 H
BUN 41 H
Creatinine 0.8
Glucose 110 H
Calcium 8.9
Total Bilirubin 0.3
AST 45 H
ALT 26
Alkaline Phosphatase 88
Vital Signs:
Vital Signs
Temp Pulse Resp BP Pulse Ox
98.0 F 71 18 125/58 96
06/15/24 15:27 06/15/24 15:27 06/15/24 15:27 06/15/24 15:27 06/15/24 15:27
I&O
06/14/24 06/15/24 06/16/24
06:59 06:59 06:59
Intake Total 1260 / 1260 720 / 720
Balance 1260 / 1260 720 / 720
Review of Systems
-
Unable to obtain full review of systems at this time due to: Dementia
History Source: Coordinated Provider
Constitutional: Denies Fever
EENT: Reports No Symptoms Reported
Respiratory: Reports Cough
Cardiac: Denies Chest Pain
Neuro: Reports Other (chronic Rt hemiplegia)
Physical Exam
-
General: Well Developed and Appears Chronically Ill
HEENT: Normocephalic and Atraumatic
Respiratory: Rhonchi (essentially resolved); Negative Wheezes
Cardiac: Regular Rhythm and S1/S2
GI: Soft, Nontender and Nondistended
Musculoskeletal: No Clubbing, No Cyanosis, No Edema and Other (muscle atrophy)
Neuro: Awake, Alert and Oriented; Negative No Motor Deficits (Rt side weakness with UE worse than LE)
Psych: Confused
[2024-06-15] MEDS: LOVENOX 40 MG SC (18:24)
[2024-06-15] MEDS: XALATAN OPHTHALMIC SOLUTION 1 DROP BOTH EYES (21:01)
[2024-06-15] MEDS: PEPCID 20 MG PO (21:04)
[2024-06-15] MEDS: LIPITOR 80 MG PO (21:04)
[2024-06-15] MEDS: TYLENOL PO (21:28)
[2024-06-15 22:22] VITALS: BMI 22.4
--- NOTE | 2024-06-15 23:06 | PTCARENOTE ---
Tylenol dose held d/t max exceed. EXCELLENCE SPECIALIST notified regarding the exceeded dose and agreed to hold dose and resume next scheduled dose.
[2024-06-15 23:18] VITALS: BP 146/59
[2024-06-16 05:34] LABS: % Basophils 0.1 % (0-2); % Eosinophils 0.1 % (0-6); % Immature Granulocytes 0.7 % (0-0.5); % Lymphocytes 8.9 % (20.5-51.1); % Monocytes 7.5 % (1.7-9.3); % Neutrophils 82.7 % (42.2-75.2); Absolute Immature Granulocytes 0.1 10^3/uL (0-0.05); Absolute Lymphocytes 1.4 10^3/uL (1.2-3.4); Absolute Monocytes 1.2 10^3/uL (0.1-0.6); Absolute Neutrophils 13.3 10^3/uL (1.4-6.5); Hematocrit 31.3 % (37.0-47.0); Hemoglobin 9.9 g/dL (12.0-16.0); Mean Corp Hgb Conc. 31.6 g/dL (33.0-37.0); Mean Corpuscular Hgb 30.4 pg (27.0-31.0); Mean Platelet Volume 11.1 fL (7.4-10.4); Nucleated Red Blood Cells % 0 %; Platelet Count 256 10^3/uL (130-400); Red Blood Cell Count 3.26 10^6/uL (4.20-5.40); Red Cell Dist. Width 12.6 % (11.5-14.5); White Blood Cell Count 16.1 10^3/uL (4.8-10.8)
[2024-06-16 05:56] LABS: ALT (SGPT) 24 U/L (0-35); AST (SGOT) 33 U/L (14-36); Albumin 3.5 g/dl (3.5-5.0); Alkaline Phosphatase 89 U/L (38-126); Blood Urea Nitrogen 34 mg/dl (7-17); Calcium 8.8 mg/dl (8.4-10.2); Carbon Dioxide 32 mmol/L (22-30); Chloride 101 mmol/L (98-107); Estimated Creatinine Clearance 42 ml/min; Glucose 123 mg/dl (70-99); Potassium 3.9 mmol/L (3.5-5.1); Sodium 141 mmol/L (135-145); Total Bilirubin 0.2 mg/dl (0.2-1.3); Total Protein 6.5 g/dl (6.3-8.2); eGFR > 60.00
[2024-06-16 06:00] VITALS: BMI 22.0
[2024-06-16] MEDS: STRIVERDI RESPIMAT 2 PUFF INH (07:19)
[2024-06-16] MEDS: SPIRIVA RESPIMAT 2.5 MCG 2 PUFF INH (07:19)
[2024-06-16 07:44] VITALS: BP 166/74
[2024-06-16] MEDS: PREMARIN 0.15 MG PO (09:13)
[2024-06-16] MEDS: TRANXENE 7.5 MG PO (09:13)
[2024-06-16] MEDS: ULTRAM 50 MG PO (09:14)
[2024-06-16] MEDS: PROZAC 40 MG PO (09:15)
[2024-06-16] MEDS: DELTASONE 40 MG PO (09:15)
[2024-06-16] MEDS: TYLENOL 1000 MG PO (09:15)
[2024-06-16] MEDS: DICLOFENAC 1% TOPICAL GEL 2 GRAM TOPICAL (09:16)
[2024-06-16] MEDS: LIORESAL 10 MG PO (09:16)
[2024-06-16] MEDS: ASPIR LOW (ENTERIC COATED) 81 MG PO (09:16)
[2024-06-16] MEDS: KCL 20 MEQ PO (09:17)
--- NOTE | 2024-06-16 11:45 | CM ---
Addendum entered by Felisha Martínez RN 06/16/24 13:23:
indicated pt ready for dc today . [facility] pt.
Spoke with nayana Jorge [phone] she agrees with dc . IMM emailed to [email or web address]
dgt requested ambulance Medical nec form completed.
Original Note:
PT OT recommended SNF.
As per [facility] pt [facility] bed hold at shelter facility.
Pt on oxygen 4-6 liter Pox 96%.
[facility]
report [phone]
fax [phone]
PLAN Return to [facility]termaker continuous churn
--- NOTE | 2024-06-16 13:50 | W.PN.HOSP.TC ---
Addendum entered and electronically signed by Jabari Roe MD 06/16/24 17:09:
Cannot confirm aspiration pneumonia/pneumonitis
Acute on chronic hypoxic respite failure
Addendum entered and electronically signed by Jabari Roe MD 06/16/24 16:53:
[id number]
Addendum entered and electronically signed by Jabari Roe MD 06/16/24 16:48:
Sepsis-POA - resolved
Original Note:
Today's Communication/Plan
-
Complete antibiotic course
Steroid taper
Follow-up CT chest in 3 months
Follow-up pulmonology outpatient
Follow-up PCP outpatient
Assessment / Plan
Assessment / Plan
#Acute hypoxic respiratory insuff 2/2 viral versus bacterial URI possible COPD flare
-Secondary to bacterial versus viral pneumonia
77% RA, currently 96% on 4 L/M (was on 4 L/M at [facility])
WBC 06/10 16.6-->12 14.9--. 12 10.0-->15.3-->16.3
elevated WBC most likely due to steroids (currently on Prednisone 40 mg daily)
-Neg COVID, influenza Negative
low probability VQ scan
-PT/OT/case management consult
unclear why hypoxic at this point, consider Pulm consult vs Cardio.
BUN/Creat 49/1.0-->49/1.1-->52/1.0-->41/0.8
�Discharge on cefdinir to complete 7-day course, doxycycline for additional 3 days to complete 5-day course
� Prednisone taper
� Follow-up pulmonology outpt
# Irregular opacity
� Follow-up CT chest in 3 months
� Follow-up pulmonary outpatient
#Right lower extremity cellulitis - treated - resolved
Hx of right lower extremity DVT approximately 12 years ago per patient was on Eliquis at that time
-Negative venous Doppler right lower extremity
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
# June 2023 nonhemorrhagic 3.5 cm infarct in the posterior lateral aspect of the left frontal just anterior to the sylvian fissure.
# Stable old 9 cm left middle cerebral artery infarct with overlying cortical sparing involving the left frontal and parietal lobes without temporal lobe involvement.
# Old 3 mm lacunar infarct in the head of the caudate on the left
#Moderate diffuse cortical and cerebellar atrophy with moderate nonspecific white matter changes as described above
-Continue aspirin 81 mg daily, atorvastatin 80 mg at bedtime, baclofen 10 mg twice daily, continue tramadol 50 mg daily and 50 mg every 6 hours as needed pain
-Hold current Celebrex 200 mg daily while trending troponin would resume if troponin trends down with no EKG changes
#Hx patent left ICA stent heavily calcified right carotid bulb and proximal ICA greater than 50% luminal narrowing on CT head neck
#Nonischemic myocardial injury likely secondary to hypoxia
Troponin 0.063-->0.050-->0.050
History of CHF postcholecystectomy per history�do not suspect current CHF
I/O, daily weights
BNP 6340
-Patient was given single dose 40 mg Lasix in ER we will hold further dosing
2D echo 06/15/2023: EF 55%, no wall abnormalities, mild LVH, mild TR, estimated pulm arterial pressure 50-55 mmHg
#Hx COPD is on chronic 2 liters Nc
#Former smoker
-Continue Stiolto Respimat , Spiriva albuterol inhaler
SaO2 on 06/13 94% on 4 L/M
Hx multiple strokes
Hx left carotid stent 11/21/2013
-Continue aspirin 81 mg daily, atorvastatin 80 mg at bedtime
HTN�benign
BP 158/65
-Continue HCTZ 25 mg daily
Follow-up BMP outpatient
#Leukocytosis
� Most likely secondary to steroids
� Follow-up CBC outpatient
#GERD
-Continue Pepcid 20 mg at bedtime
Hypokalemia
3.1-->3.7 resolved
#Hx HLD
Check lipid profile
-Continue atorvastatin 80 mg at bedtime
#Hx depression
- cont fluoxetine 40 mg daily,
#Hx hormonal agent
Continue Premarin 0.15 mg daily
#Hx sleep apnea
DVT prophylaxis
Subcu Lovenox
More than 30 minutes spent in discharge including
Final examination of the patient
Summarizing hospital stay
Instructions for continuing care to all relevant caregivers
Preparation of discharge records, prescriptions, and referral forms
Total time spent (36 in minutes):
Anticipated Discharge: Today
Subjective/Interval History
-
Date of Service: June 16, 2024
back to baseline o2;
Feels much better
Objective Data
-
Labs:
Laboratory Results
06/16/24
05:08
WBC 16.1 H
Hgb 9.9 L
Hct 31.3 L
Plt Count 256
Sodium 141
Potassium 3.9
Chloride 101
Carbon Dioxide 32 H
BUN 34 H
Creatinine 0.8
Glucose 123 H
Calcium 8.8
Total Bilirubin 0.2
AST 33
ALT 24
Alkaline Phosphatase 89
Vital Signs:
Vital Signs
Temp Pulse Resp BP Pulse Ox
98.3 F 73 16 166/74 96
06/15/24 23:18 06/16/24 07:44 06/16/24 07:44 06/16/24 07:44 06/16/24 07:44
I&O
06/15/24 06/16/24 06/17/24
06:59 06:59 06:59
Intake Total 720 / 720 720 / 720
Balance 720 / 720 720 / 720
Review of Systems
-
History Source: Patient
All other systems: Not reviewed unless documented
Physical Exam
-
General: Well Developed and Appears Chronically Ill
HEENT: Normocephalic and Atraumatic
Respiratory: Negative Wheezes
Cardiac: Regular Rhythm and S1/S2
GI: Soft, Nontender and Nondistended
Musculoskeletal: No Clubbing, No Cyanosis, No Edema and Other (muscle atrophy)
Neuro: Awake, Alert and Oriented; Negative No Motor Deficits (Rt side weakness with UE worse than LE)
Psych: Confused
Data Reviewed
-
Diagnostic Radiology: Image personally visualized and interpreted
CT Scan: Image personally visualized and interpreted
Labs: Labs Reviewed by me
--- NOTE | 2024-06-16 13:56 | W.DS.TRANS ---
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
-
Discharge Instructions:
Discharge Diagnosis/Procedures #Acute hypoxic respiratory insuff 2/2 viral
versus bacterial URI possible COPD flare
Diet Low Cholesterol,Low Fat
Activity As tolerated
Blood Work cbc and cmp in 3-5 days
Instructions: *PCP/Other Drink Waiter Heart Failure Instructions
Stand-Alone Forms:
Changes to Home Medications: Yes
Discharge Medications:
DC Medications w/original date entered in [place] 100e
baclofen 10 mg tablet 10 mg PO BID Neurological Condition 05/19/12
conjugated estrogens 0.3 mg tablet (Premarin) 0.15 mg PO DAILY Hormonal agent 11/20/13
famotidine 20 mg tablet 20 mg PO HS Gastrointestinal issue 04/08/15
aspirin 81 mg tablet,delayed release 81 mg PO DAILY Blood clot prevention/tx ##0 10/10/20
tiotropium 2.5 mcg-olodaterol 2.5 mcg/actuation mist for inhalation (Stiolto Respimat) 2 puff inhalation R DAILY Lung/breathing issues 08/14/22
celecoxib 200 mg capsule (Celebrex) 200 mg PO DAILY Pain 03/05/23
fluoxetine 40 mg capsule 40 mg PO DAILY Mental Health/Anxiety 03/05/23
latanoprost 0.005 % eye drops 1 drp BOTH EYES HS Eye Condition 03/05/23
acetaminophen 500 mg tablet (Tylenol Extra Strength) 1,000 mg PO TID mild pain 06/15/23
atorvastatin 80 mg tablet 80 mg PO HS High Cholesterol 06/15/23
bisacodyl 10 mg rectal suppository (Dulcolax (bisacodyl)) 10 mg MN DAILYPRN PRN constipation 06/15/23
clorazepate dipotassium 7.5 mg tablet 7.5 mg PO BID Mental Health/Anxiety 06/15/23
magnesium hydroxide 400 mg/5 mL oral suspension (Milk of Magnesia) 2,400 mg PO DAILYPRN PRN if no bm by 4th day 06/15/23
polyethylene glycol 3350 17 gram oral powder packet (Miralax) 17 g PO DAILYPRN PRN constipation 06/15/23
sodium phosphates 19 gram-7 gram/118 mL enema (Fleet Enema) 118 ml MN DAILYPRN PRN CONSTIPATION 06/15/23
albuterol sulfate 90 mcg/actuation aerosol inhaler 2 inh inhalation R Q6HPRN PRN SOB 06/12/24
dextromethorphan polistirex 30 mg/5 mL oral susp ext.release 12hr (Delsym 12 hour) 5 ml PO Q6HPRN PRN COUGH 06/12/24
diclofenac sodium 1 % topical gel 2 g topical BID LEFT HAND 06/12/24
hydrochlorothiazide 25 mg tablet 25 mg PO DAILY Blood Pressure 06/12/24
tiotropium bromide 1.25 mcg/actuation mist for inhalation (Spiriva Respimat) 2 puff inhalation R DAILY Lung/Breathing Issues 06/12/24
tramadol 50 mg tablet 50 mg PO DAILY pain 06/12/24
tramadol 50 mg tablet 50 mg PO Q6HPRN PRN pain 06/12/24
cefdinir 300 mg capsule 300 mg PO BID 4 days #8 caps 06/16/24
doxycycline hyclate 100 mg capsule 100 mg PO BID 2 days #4 caps 06/16/24
prednisone 10 mg tablet See Rx Instructions .Route .COMPLEX #45 tabs 06/16/24
Home Medication Changes
cefdinir 300 mg capsule 300 mg PO BID 4 days #8 caps 06/16/24
doxycycline hyclate 100 mg capsule 100 mg PO BID 2 days #4 caps 06/16/24
prednisone 10 mg tablet See Rx Instructions .Route .COMPLEX #45 tabs 06/16/24
Pending Results: No
--- NOTE | 2024-06-16 16:36 | PN.CDI ---
CDI
- -
CDI:
Physician Documentation Request
Admit Date: 06/12/24 14:02
Dear Doctor Bhupinder,
Please review the following and provide your response in the progress notes.
Clinical Indicators:
Pt admitted with #Acute hypoxic respiratory insuff 2/2 viral versus bacterial URI possible COPD flare Secondary to bacterial versus viral pneumonia/RLE Cellulitis ..'
On admission WBC 14.9,HR 109, Respirations 32
Pt treated with Azithromycin/Doxycycline /Cefdinir
Please clarify which of the following most accurately describes the status of the patient's infection:
Sepsis-POA
- Systemic manifestations of infection, with 2 or more SIRS criteria which include:
- Fever >100.4 degrees F or hypothermia < 96.8 degrees F
- Leukocytosis - WBC > 12,000 or leukopenia - WBC < 4,000 or > 10% bands
- Tachycardia > 90 beats per minute
- Tachypnea - RR > 20 breaths per minute or PaCO2 , 32mmHg
Source: Merck Manual 2013
Pneumonia only , Without Systemic Illness
- indicate the site/source, such as UTI, pneumonia etc.
Other ( please specify)
Use of terms such as suspected, likely, concern for, or probable (associated with a specific diagnosis that is being evaluated, monitored, or treated as if it exists) are acceptable and can be coded in the inpatient setting, when documented at the
time of discharge.
Thank you,
Faith Biggs RN
CDI Specialist
[place] [facility]
Please use your independent medical judgment in providing your response.
--- NOTE | 2024-06-16 16:43 | PN.CDI ---
CDI
- -
CDI:
Physician Documentation Request
Admit Date: 06/12/24 14:02
Dear Doctor Bhupinder ,
Please review the following and provide your response in the progress notes.
Clinical Indicators:
Pt admitted with #Acute hypoxic respiratory insuff 2/2 viral versus bacterial URI possible COPD flare Secondary to bacterial versus viral pneumonia/RLE Cellulitis ..'
Documented per H&P and progress notes,' #Hx COPD is on chronic 2 liters Nc..'
Please specify a diagnosis for home oxygen use :
Chronic Hypoxic respiratory failure
Hypoxia only
Other ( please specify)
Use of terms such as suspected, likely, concern for, or probable (associated with a specific diagnosis that is being evaluated, monitored, or treated as if it exists) are acceptable and can be coded in the inpatient setting, when documented at the
time of discharge.
Thank you,
Faith Biggs RN
CDI Specialist
[place] [facility]
Please use your independent medical judgment in providing your response.
--- NOTE | 2024-06-16 16:51 | PN.CDI ---
CDI
- -
CDI:
Physician Documentation Request
Admit Date: 06/12/24 14:02
Dear Doctor Bhupinder,
Please review the following and provide your response in the progress notes.
Clinical Indicators:
Pt admitted with #Acute hypoxic respiratory insuff 2/2 viral versus bacterial URI possible COPD flare Secondary to bacterial versus viral pneumonia/RLE Cellulitis ..'
Documented per H&P, ' on arrival she was 77% on room air ...She states she is on chronic 2 L nasal cannula for her COPD. ....'
Pt has been on 2-6 LPM of oxygen /tachycardic and tachypneic/Treated with Steriods
06/12/24
16:00 06/12/24
16:45 06/12/24
17:00
Pulse 104
Resp Rate 26 32
06/12/24
17:30 06/12/24
18:06
Pulse 105
Resp Rate 25
06/12/24
23:32 06/13/24
07:15 06/13/24
08:33
Nasal Cannula flow liters per minute 4 4 2
06/15/24
08:02 06/15/24
11:14 06/15/24
23:18
Nasal Cannula flow liters per minute 6 5 5
Please Clarify which of the following accurately represents the patient's respiratory status based on the above findings:
Acute hypoxic respiratory failure
Hypoxia Only
Other ( please specify)
Additional information for Respiratory Failure:
Recognized criteria for Respiratory Failure (Source: MARTIN Hospitalist May 2013)
ABGs: (1 or more) Symptoms Please indicate type if known
1. p)2 <60 or RA SPO2 <91% on RA 1. Tachypnea, SOB, dyspnea Hypoxic
2. pCO2 50 and pH <7.35 2. Use of accessory muscles Hypercapnic
3. pO2 decrease of pCO2 increase by 3. Pallor or cyanosis Hypoxic and Hypercapnic
10 mmHg from baseline if known 4. Anxiety or restlessness Unable to determine
5. Unable to speak in full sentences
Supplemental O2 of > 40% (5LPM) Intubation is not required
Use of terms such as suspected, likely, concern for, or probable (associated with a specific diagnosis that is being evaluated, monitored, or treated as if it exists) are acceptable and can be coded in the inpatient setting, when documented at the
time of discharge.
Thank you,
Faith Biggs RN
CDI Specialist
[place] [facility]
Please use your independent medical judgment in providing your response.
--- NOTE | 2024-06-16 16:59 | PN.CDI ---
CDI
- -
CDI:
Physician Documentation Request
Admit Date: 06/12/24 14:02
Dear Doctor Bhupinder ,
Please review the following and provide your response in the progress notes.
Clinical Indicators:
Pt admitted with #Acute hypoxic respiratory insuff 2/2 viral versus bacterial URI possible COPD flare Secondary to bacterial versus viral pneumonia/RLE Cellulitis ..'
Documented per H&P update note 06/12,' possible aspiration pneumonitis... Levaquin to cover PNA....'
Documented per H&P, ' -Recommends regular/thin diet with aspiration precautions Meds as tolerated POT LINING SUPERVISOR to follow....'
POT LINING SUPERVISOR note 06/12,' Patient awake/alert and seated upright with cough observed prior to PO trials. P.O. trials of thins via ice chip/cup/straw, puree, and regular solids provided. Functional mastication and bolus formation observed with minimal oral
residue after regular solid that cleared with liquid wash. Cough observed x1 with straw sip of thins ...'
Please update the status of aspiration pneumonitis documented in update note:
Aspiration Pneumonitis -resolved
Aspiration pneumonitis -ruled out
Other ( please specify)
Use of terms such as suspected, likely, concern for, or probable (associated with a specific diagnosis that is being evaluated, monitored, or treated as if it exists) are acceptable and can be coded in the inpatient setting, when documented at the
time of discharge.
Thank you,
Faith Biggs RN
CDI Specialist
[place] [facility]
Please use your independent medical judgment in providing your response.
--- NOTE | 2024-06-16 17:23 | PTCARENOTE ---
D/C instructions updated by to include repeat CT in 3 months. Call placed to Leticia Romero to relay message - copy of updated d/c instructions faxed over for reference.
== END 2024-06-16 15:33 | DRG 871 ==
LOC: 3 WEST ACU 14:02
PROVIDERS: Clinical Nurse Specialist Family Health; ADMITTING PHYSICIAN Hospitalist; ATTENDING PHYSICIAN Internal Medicine; EMERGENCY PHYSICIAN Student in an Organized Health Care Education/Training Program; FAMILY PHYSICIAN Family Medicine
DX: A41.9 Sepsis, unspecified organism (principal); J12.89 Other viral pneumonia; J96.21 Acute and chronic respiratory failure with hypoxia; J44.1 Chronic obstructive pulmonary disease with (acute) exacerbation; J98.11 Atelectasis; L03.115 Cellulitis of right lower limb; I69.351 Hemiplegia and hemiparesis following cerebral infarction affecting right dominant side; I5A Non-ischemic myocardial injury (non-traumatic); J44.0 Chronic obstructive pulmonary disease with (acute) lower respiratory infection; Z79.82 Long term (current) use of aspirin; Z87.891 Personal history of nicotine dependence; Z86.718 Personal history of other venous thrombosis and embolism
CPT/HCPCS: 70450; 71045; 71046; 71250; 78582; 80053; 80061; 83880; 84484; 85025; 87070; 87205; 87502; 87811; 92526; 92610; 93005; 93306; 93971; 94640; 96374; 97163; 97167; 99291; A9540; A9567

== ENCOUNTER → 2024-06-21 19:06 | Outpatient (REF) | payer OTHER, MEDICARE, SELFPAY ==
[2024-06-21 20:28] LABS: ALT (SGPT) 24 U/L (0-35); AST (SGOT) 27 U/L (14-36); Albumin 4.1 g/dl (3.5-5.0); Alkaline Phosphatase 91 U/L (38-126); Blood Urea Nitrogen 29 mg/dl (7-17); Calcium 9.4 mg/dl (8.4-10.2); Carbon Dioxide 30 mmol/L (22-30); Chloride 93 mmol/L (98-107); Glucose 108 mg/dl (70-99); Potassium 5.8 mmol/L (3.5-5.1); Sodium 132 mmol/L (135-145); Total Bilirubin 0.5 mg/dl (0.2-1.3); Total Protein 7.1 g/dl (6.3-8.2); eGFR > 60.00
[2024-06-21 20:43] LABS: % Basophils 0.1 % (0-2); % Immature Granulocytes 0.7 % (0-0.5); % Lymphocytes 7.5 % (20.5-51.1); % Monocytes 4.6 % (1.7-9.3); % Neutrophils 87.1 % (42.2-75.2); Absolute Immature Granulocytes 0.1 10^3/uL (0-0.05); Absolute Lymphocytes 1.4 10^3/uL (1.2-3.4); Absolute Monocytes 0.9 10^3/uL (0.1-0.6); Absolute Neutrophils 16.6 10^3/uL (1.4-6.5); Hematocrit 38.8 % (37.0-47.0); Mean Corp Hgb Conc. 30.9 g/dL (33.0-37.0); Mean Platelet Volume 11.2 fL (7.4-10.4); Nucleated Red Blood Cells % 0 %; Platelet Count 431 10^3/uL (130-400); Red Cell Dist. Width 12.9 % (11.5-14.5); White Blood Cell Count 19.1 10^3/uL (4.8-10.8)
== END ==
LOC: OLABP 19:06
PROVIDERS: ATTENDING PHYSICIAN Family Medicine
DX: J96.01 Acute respiratory failure with hypoxia (principal); I69.351 Hemiplegia and hemiparesis following cerebral infarction affecting right dominant side; H40.9 Unspecified glaucoma; L03.116 Cellulitis of left lower limb; Z74.1 Need for assistance with personal care; I69.320 Aphasia following cerebral infarction; M54.50 Low back pain, unspecified; M51.9 Unspecified thoracic, thoracolumbar and lumbosacral intervertebral disc disorder; J21.9 Acute bronchiolitis, unspecified; E04.1 Nontoxic single thyroid nodule; E27.9 Disorder of adrenal gland, unspecified; H61.121 Hematoma of pinna, right ear; J44.9 Chronic obstructive pulmonary disease, unspecified; E78.5 Hyperlipidemia, unspecified; M62.81 Muscle weakness (generalized); I63.9 Cerebral infarction, unspecified; R26.2 Difficulty in walking, not elsewhere classified; F32.9 Major depressive disorder, single episode, unspecified
CPT/HCPCS: 80053; 85025

== ENCOUNTER → 2024-06-23 10:16 | Outpatient (REF) | payer OTHER, MEDICARE, SELFPAY ==
[2024-06-23 11:16] LABS: Hematocrit 34.1 % (37.0-47.0); Hemoglobin 10.7 g/dL (12.0-16.0); Mean Corp Hgb Conc. 31.4 g/dL (33.0-37.0); Mean Corpuscular Hgb 30.4 pg (27.0-31.0); Mean Corpuscular Volume 96.9 fL (81.0-99.0); Mean Platelet Volume 11.7 fL (7.4-10.4); Platelet Count 310 10^3/uL (130-400); Red Blood Cell Count 3.52 10^6/uL (4.20-5.40); Red Cell Dist. Width 13.2 % (11.5-14.5); White Blood Cell Count 15.5 10^3/uL (4.8-10.8)
[2024-06-23 11:31] LABS: Blood Urea Nitrogen 28 mg/dl (7-17); Calcium 8.9 mg/dl (8.4-10.2); Carbon Dioxide 33 mmol/L (22-30); Chloride 97 mmol/L (98-107); Glucose 89 mg/dl (70-99); Magnesium 1.9 mg/dl (1.6-2.3); Potassium 3.6 mmol/L (3.5-5.1); Sodium 135 mmol/L (135-145); eGFR > 60.00
== END ==
LOC: OLABP 10:16
PROVIDERS: ATTENDING PHYSICIAN Family Medicine
DX: L03.116 Cellulitis of left lower limb (principal); J96.01 Acute respiratory failure with hypoxia; I69.351 Hemiplegia and hemiparesis following cerebral infarction affecting right dominant side; H40.10X0 Unspecified open-angle glaucoma, stage unspecified; M54.50 Low back pain, unspecified; S22.32XA Fracture of one rib, left side, initial encounter for closed fracture; I63.9 Cerebral infarction, unspecified; Z74.1 Need for assistance with personal care; M62.81 Muscle weakness (generalized); R26.2 Difficulty in walking, not elsewhere classified; E27.9 Disorder of adrenal gland, unspecified; H61.121 Hematoma of pinna, right ear; J44.9 Chronic obstructive pulmonary disease, unspecified; E78.5 Hyperlipidemia, unspecified; M62.59 Muscle wasting and atrophy, not elsewhere classified, multiple sites
CPT/HCPCS: 36415; 80048; 83735; 85027

== ENCOUNTER → 2024-07-07 09:38 | Outpatient (REF) | payer MEDICARE, SELFPAY ==
[2024-07-07 10:13] LABS: % Basophils 0.5 % (0-2); % Immature Granulocytes 0.5 % (0-0.5); % Lymphocytes 18.4 % (20.5-51.1); % Monocytes 7.4 % (1.7-9.3); % Neutrophils 68.2 % (42.2-75.2); Absolute Eosinophils 0.4 10^3/uL (0-0.7); Absolute Lymphocytes 1.5 10^3/uL (1.2-3.4); Absolute Monocytes 0.6 10^3/uL (0.1-0.6); Absolute Neutrophils 5.6 10^3/uL (1.4-6.5); Hematocrit 36.2 % (37.0-47.0); Hemoglobin 11.1 g/dL (12.0-16.0); Mean Corp Hgb Conc. 30.7 g/dL (33.0-37.0); Mean Corpuscular Hgb 29.9 pg (27.0-31.0); Mean Corpuscular Volume 97.6 fL (81.0-99.0); Mean Platelet Volume 11.2 fL (7.4-10.4); Nucleated Red Blood Cells % 0 %; Platelet Count 150 10^3/uL (130-400); Red Blood Cell Count 3.71 10^6/uL (4.20-5.40); Red Cell Dist. Width 14.5 % (11.5-14.5); White Blood Cell Count 8.1 10^3/uL (4.8-10.8)
[2024-07-07 10:37] LABS: Blood Urea Nitrogen 33 mg/dl (7-17); Calcium 8.5 mg/dl (8.4-10.2); Carbon Dioxide 29 mmol/L (22-30); Chloride 104 mmol/L (98-107); Glucose 130 mg/dl (70-99); Potassium 3.3 mmol/L (3.5-5.1); Sodium 141 mmol/L (135-145); eGFR > 60.00
== END ==
LOC: OLABP 09:38
PROVIDERS: ATTENDING PHYSICIAN Family Medicine
DX: I69.351 Hemiplegia and hemiparesis following cerebral infarction affecting right dominant side (principal); H40.9 Unspecified glaucoma; M54.50 Low back pain, unspecified; Z74.1 Need for assistance with personal care; J96.01 Acute respiratory failure with hypoxia; I10 Essential (primary) hypertension
CPT/HCPCS: 36415; 80048; 85025

== ENCOUNTER → 2024-07-10 10:59 | Outpatient (REF) | payer MEDICARE, SELFPAY ==
[2024-07-10 11:52] LABS: Blood Urea Nitrogen 40 mg/dl (7-17); Calcium 8.8 mg/dl (8.4-10.2); Carbon Dioxide 32 mmol/L (22-30); Chloride 102 mmol/L (98-107); Glucose 99 mg/dl (70-99); Potassium 3.6 mmol/L (3.5-5.1); Sodium 141 mmol/L (135-145); eGFR > 60.00
== END ==
LOC: OLABP 10:59
PROVIDERS: ATTENDING PHYSICIAN Family Medicine
DX: J96.01 Acute respiratory failure with hypoxia (principal); I69.351 Hemiplegia and hemiparesis following cerebral infarction affecting right dominant side; H40.9 Unspecified glaucoma; M54.50 Low back pain, unspecified; W19.XXXA Unspecified fall, initial encounter; M51.9 Unspecified thoracic, thoracolumbar and lumbosacral intervertebral disc disorder; I10 Essential (primary) hypertension; K21.9 Gastro-esophageal reflux disease without esophagitis; E04.1 Nontoxic single thyroid nodule; E27.9 Disorder of adrenal gland, unspecified; H61.121 Hematoma of pinna, right ear; J44.9 Chronic obstructive pulmonary disease, unspecified; E78.5 Hyperlipidemia, unspecified; M62.81 Muscle weakness (generalized); I69.320 Aphasia following cerebral infarction; I63.9 Cerebral infarction, unspecified; R26.2 Difficulty in walking, not elsewhere classified; F32.9 Major depressive disorder, single episode, unspecified
CPT/HCPCS: 36415; 80048

== ENCOUNTER → 2024-08-02 13:27 | Outpatient (REF) | payer OTHER, MEDICARE, SELFPAY ==
[2024-08-02 12:59] LABS: % Basophils 0.8 % (0-2); % Eosinophils 3.2 % (0-6); % Immature Granulocytes 0.5 % (0-0.5); % Lymphocytes 23.2 % (20.5-51.1); % Monocytes 9.5 % (1.7-9.3); % Neutrophils 62.8 % (42.2-75.2); Absolute Basophils 0.1 10^3/uL (0-0.2); Absolute Eosinophils 0.2 10^3/uL (0-0.7); Absolute Lymphocytes 1.5 10^3/uL (1.2-3.4); Absolute Monocytes 0.6 10^3/uL (0.1-0.6); Absolute Neutrophils 4.2 10^3/uL (1.4-6.5); Hematocrit 33.2 % (37.0-47.0); Hemoglobin 10.6 g/dL (12.0-16.0); Mean Corp Hgb Conc. 31.9 g/dL (33.0-37.0); Mean Corpuscular Hgb 29.8 pg (27.0-31.0); Mean Corpuscular Volume 93.3 fL (81.0-99.0); Mean Platelet Volume 11.5 fL (7.4-10.4); Nucleated Red Blood Cells % 0 %; Platelet Count 207 10^3/uL (130-400); Red Blood Cell Count 3.56 10^6/uL (4.20-5.40); Red Cell Dist. Width 13.7 % (11.5-14.5); White Blood Cell Count 6.6 10^3/uL (4.8-10.8)
[2024-08-02 13:18] LABS: Blood Urea Nitrogen 29 mg/dl (7-17); Calcium 8.9 mg/dl (8.4-10.2); Carbon Dioxide 35 mmol/L (22-30); Chloride 99 mmol/L (98-107); Glucose 89 mg/dl (70-99); Potassium 3.7 mmol/L (3.5-5.1); Sodium 139 mmol/L (135-145); eGFR > 60.00
[2024-08-03 09:22] LABS: Urine Albumin 1+ (Neg - Trace); Urine Bilirubin Negative (Negative); Urine Character Clear (Clear); Urine Color Yellow; Urine Glucose Negative (Negative); Urine Ketone Negative (Negative); Urine Leukocyte 1+ (Negative); Urine Nitrite Negative (Negative); Urine Occult Blood Negative (Negative); Urine Specific Gravity 1.015 (<1.030); Urine Urobilinogen Negative (Neg - 1+)
[2024-08-03 09:34] LABS: Urine Squamous Cell >30 /LPF (Few)
[2024-08-03 09:35] LABS: Urine Bacteria Few (Negative); Urine Red Blood Cell 0-2 /HPF (0-2)
== END ==
LOC: OLABP 13:27
PROVIDERS: ATTENDING PHYSICIAN Family Medicine
DX: J44.9 Chronic obstructive pulmonary disease, unspecified (principal); E27.9 Disorder of adrenal gland, unspecified; J44.1 Chronic obstructive pulmonary disease with (acute) exacerbation; N39.0 Urinary tract infection, site not specified
CPT/HCPCS: 36415; 80048; 81003; 81015; 85025; 87086

== ENCOUNTER → 2024-10-31 11:51 | Outpatient (REF) | payer OTHER, MEDICARE, SELFPAY ==
[2024-10-31 12:11] LABS: % Basophils 0.3 % (0-2); % Eosinophils 0.1 % (0-6); % Immature Granulocytes 0.3 % (0-0.5); % Lymphocytes 6.6 % (20.5-51.1); % Monocytes 7.3 % (1.7-9.3); % Neutrophils 85.4 % (42.2-75.2); Absolute Lymphocytes 0.5 10^3/uL (1.2-3.4); Absolute Monocytes 0.5 10^3/uL (0.1-0.6); Absolute Neutrophils 6.2 10^3/uL (1.4-6.5); Hematocrit 34.6 % (37.0-47.0); Hemoglobin 10.7 g/dL (12.0-16.0); Mean Corp Hgb Conc. 30.9 g/dL (33.0-37.0); Mean Corpuscular Hgb 27.9 pg (27.0-31.0); Mean Corpuscular Volume 90.1 fL (81.0-99.0); Mean Platelet Volume 12.9 fL (7.4-10.4); Nucleated Red Blood Cells % 0 %; Platelet Count 166 10^3/uL (130-400); Red Blood Cell Count 3.84 10^6/uL (4.20-5.40); Red Cell Dist. Width 13.1 % (11.5-14.5); White Blood Cell Count 7.2 10^3/uL (4.8-10.8)
[2024-10-31 12:53] LABS: Blood Urea Nitrogen 44 mg/dl (7-17); Calcium 8.9 mg/dl (8.4-10.2); Carbon Dioxide 28 mmol/L (22-30); Chloride 102 mmol/L (98-107); Glucose 124 mg/dl (70-99); Potassium 3.8 mmol/L (3.5-5.1); Sodium 142 mmol/L (135-145); eGFR 55.55
== END ==
LOC: OLABP 11:51
PROVIDERS: ATTENDING PHYSICIAN Family Medicine
DX: J96.01 Acute respiratory failure with hypoxia (principal); I69.351 Hemiplegia and hemiparesis following cerebral infarction affecting right dominant side; H40.9 Unspecified glaucoma; M54.50 Low back pain, unspecified; M62.59 Muscle wasting and atrophy, not elsewhere classified, multiple sites; I63.9 Cerebral infarction, unspecified; M51.9 Unspecified thoracic, thoracolumbar and lumbosacral intervertebral disc disorder; M62.81 Muscle weakness (generalized); R26.2 Difficulty in walking, not elsewhere classified; F32.9 Major depressive disorder, single episode, unspecified; I10 Essential (primary) hypertension; K21.9 Gastro-esophageal reflux disease without esophagitis; E04.1 Nontoxic single thyroid nodule; E27.9 Disorder of adrenal gland, unspecified; H61.121 Hematoma of pinna, right ear; U07.1 COVID-19; J44.9 Chronic obstructive pulmonary disease, unspecified
CPT/HCPCS: 36415; 80048; 85025

== ENCOUNTER → 2024-12-16 11:52 | Outpatient (REF) | payer OTHER, MEDICARE, SELFPAY ==
[2024-12-16 12:42] LABS: % Basophils 1.1 % (0-2); % Eosinophils 5.1 % (0-6); % Immature Granulocytes 0.2 % (0-0.5); % Lymphocytes 30.8 % (20.5-51.1); % Monocytes 11.3 % (1.7-9.3); % Neutrophils 51.5 % (42.2-75.2); Absolute Basophils 0.1 10^3/uL (0-0.2); Absolute Eosinophils 0.2 10^3/uL (0-0.7); Absolute Lymphocytes 1.4 10^3/uL (1.2-3.4); Absolute Monocytes 0.5 10^3/uL (0.1-0.6); Absolute Neutrophils 2.4 10^3/uL (1.4-6.5); Hematocrit 27.8 % (37.0-47.0); Hemoglobin 8.7 g/dL (12.0-16.0); Mean Corp Hgb Conc. 31.3 g/dL (33.0-37.0); Mean Corpuscular Hgb 27.6 pg (27.0-31.0); Mean Corpuscular Volume 88.3 fL (81.0-99.0); Mean Platelet Volume 12.4 fL (7.4-10.4); Nucleated Red Blood Cells % 0 %; Platelet Count 188 10^3/uL (130-400); Red Blood Cell Count 3.15 10^6/uL (4.20-5.40); Red Cell Dist. Width 14.2 % (11.5-14.5); White Blood Cell Count 4.7 10^3/uL (4.8-10.8)
[2024-12-16 13:01] LABS: Blood Urea Nitrogen 31 mg/dl (7-17); Carbon Dioxide 32 mmol/L (22-30); Chloride 105 mmol/L (98-107); Glucose 85 mg/dl (70-99); HDL Cholesterol 50 mg/dl; LDL Cholesterol, Calculated 55 mg/dl; Potassium 3.4 mmol/L (3.5-5.1); Sodium 142 mmol/L (135-145); Total Cholesterol 123 mg/dl (50-199); Triglyceride 93 mg/dl (10-149); Very Low Density Lipoprotein 18 mg/dl (0-30); eGFR > 60.00
== END ==
LOC: OLABP 11:52
PROVIDERS: ATTENDING PHYSICIAN Family Medicine
DX: E78.5 Hyperlipidemia, unspecified (principal); I10 Essential (primary) hypertension; J96.01 Acute respiratory failure with hypoxia; I69.351 Hemiplegia and hemiparesis following cerebral infarction affecting right dominant side; H40.9 Unspecified glaucoma; M51.9 Unspecified thoracic, thoracolumbar and lumbosacral intervertebral disc disorder; K21.9 Gastro-esophageal reflux disease without esophagitis; E04.1 Nontoxic single thyroid nodule; E27.9 Disorder of adrenal gland, unspecified; H61.121 Hematoma of pinna, right ear; J44.9 Chronic obstructive pulmonary disease, unspecified; I63.9 Cerebral infarction, unspecified; M62.81 Muscle weakness (generalized); R26.2 Difficulty in walking, not elsewhere classified; F32.9 Major depressive disorder, single episode, unspecified
CPT/HCPCS: 36415; 80048; 80061; 85025

== ENCOUNTER → 2024-12-23 10:41 | Outpatient (REF) | payer OTHER, MEDICARE, SELFPAY ==
[2024-12-23 11:56] LABS: % Basophils 0.6 % (0-2); % Eosinophils 6.4 % (0-6); % Immature Granulocytes 0.2 % (0-0.5); % Lymphocytes 32.5 % (20.5-51.1); % Neutrophils 48.3 % (42.2-75.2); Absolute Eosinophils 0.3 10^3/uL (0-0.7); Absolute Lymphocytes 1.6 10^3/uL (1.2-3.4); Absolute Monocytes 0.6 10^3/uL (0.1-0.6); Absolute Neutrophils 2.4 10^3/uL (1.4-6.5); Hematocrit 27.6 % (37.0-47.0); Hemoglobin 8.5 g/dL (12.0-16.0); Mean Corp Hgb Conc. 30.8 g/dL (33.0-37.0); Mean Corpuscular Hgb 27.2 pg (27.0-31.0); Mean Corpuscular Volume 88.5 fL (81.0-99.0); Nucleated Red Blood Cells % 0 %; Platelet Count 168 10^3/uL (130-400); Red Blood Cell Count 3.12 10^6/uL (4.20-5.40); Red Cell Dist. Width 14.2 % (11.5-14.5)
[2024-12-23 12:31] LABS: Blood Urea Nitrogen 29 mg/dl (7-17); Calcium 8.8 mg/dl (8.4-10.2); Carbon Dioxide 31 mmol/L (22-30); Chloride 107 mmol/L (98-107); Glucose 79 mg/dl (70-99); Potassium 3.1 mmol/L (3.5-5.1); Sodium 143 mmol/L (135-145); eGFR > 60.00
== END ==
LOC: OLABP 10:41
PROVIDERS: ATTENDING PHYSICIAN Family Medicine
DX: L03.116 Cellulitis of left lower limb (principal); Z74.1 Need for assistance with personal care; I69.320 Aphasia following cerebral infarction; I69.30 Unspecified sequelae of cerebral infarction; U07.1 COVID-19; M62.59 Muscle wasting and atrophy, not elsewhere classified, multiple sites; J96.01 Acute respiratory failure with hypoxia; I69.351 Hemiplegia and hemiparesis following cerebral infarction affecting right dominant side; H40.9 Unspecified glaucoma; M54.50 Low back pain, unspecified; I10 Essential (primary) hypertension; K21.9 Gastro-esophageal reflux disease without esophagitis; E04.1 Nontoxic single thyroid nodule; E27.9 Disorder of adrenal gland, unspecified; H61.121 Hematoma of pinna, right ear; J44.9 Chronic obstructive pulmonary disease, unspecified; E78.5 Hyperlipidemia, unspecified; M62.81 Muscle weakness (generalized); I63.9 Cerebral infarction, unspecified; R26.2 Difficulty in walking, not elsewhere classified; F32.9 Major depressive disorder, single episode, unspecified
CPT/HCPCS: 36415; 80048; 85025

== ENCOUNTER → 2024-12-30 11:20 | Outpatient (REF) | payer OTHER, MEDICARE, SELFPAY ==
[2024-12-30 11:57] LABS: Hematocrit 27.9 % (37.0-47.0); Hemoglobin 8.6 g/dL (12.0-16.0); Mean Corp Hgb Conc. 30.8 g/dL (33.0-37.0); Mean Corpuscular Volume 87.5 fL (81.0-99.0); Nucleated Red Blood Cells % 0 %; Platelet Count 153 10^3/uL (130-400); Red Cell Dist. Width 14.4 % (11.5-14.5)
[2024-12-30 12:03] LABS: Blood Urea Nitrogen 37 mg/dl (7-17); Calcium 8.5 mg/dl (8.4-10.2); Carbon Dioxide 29 mmol/L (22-30); Chloride 106 mmol/L (98-107); Glucose 109 mg/dl (70-99); Iron 52 ug/dl (37-170); Potassium 3.9 mmol/L (3.5-5.1); Sodium 140 mmol/L (135-145); eGFR > 60.00
[2024-12-30 12:13] LABS: Total Iron Binding Capacity 378 ug/dl (265-497)
[2024-12-30 12:37] LABS: Ferritin 10.0 ng/ml (11.1-264.0)
[2024-12-30 13:09] LABS: Folate 3.9 ng/ml (2.76-20); Vitamin B12 339 pg/ml (239-931)
== END ==
LOC: OLABP 11:20
PROVIDERS: ATTENDING PHYSICIAN Family Medicine
DX: J96.01 Acute respiratory failure with hypoxia (principal); I69.351 Hemiplegia and hemiparesis following cerebral infarction affecting right dominant side; H40.9 Unspecified glaucoma; M54.50 Low back pain, unspecified; M62.59 Muscle wasting and atrophy, not elsewhere classified, multiple sites; I63.9 Cerebral infarction, unspecified; Z74.1 Need for assistance with personal care; M62.81 Muscle weakness (generalized); R26.2 Difficulty in walking, not elsewhere classified; F32.9 Major depressive disorder, single episode, unspecified; M51.9 Unspecified thoracic, thoracolumbar and lumbosacral intervertebral disc disorder; I10 Essential (primary) hypertension; K21.9 Gastro-esophageal reflux disease without esophagitis; E04.1 Nontoxic single thyroid nodule; E27.9 Disorder of adrenal gland, unspecified; H61.121 Hematoma of pinna, right ear; J44.9 Chronic obstructive pulmonary disease, unspecified; E78.5 Hyperlipidemia, unspecified; U07.1 COVID-19; I69.320 Aphasia following cerebral infarction; D50.9 Iron deficiency anemia, unspecified; Z79.899 Other long term (current) drug therapy
CPT/HCPCS: 36415; 80048; 82607; 82728; 82746; 83540; 83550; 85025